=== PATIENT | male | born 1970 | race Caucasian/White ===

== ENCOUNTER 2021-08-01 15:59 | Outpatient (REF) | payer BC, SELFPAY ==
--- NOTE | ~2021-08-01 | XR_ITS ---
EXAMINATION: XR CHEST CLINICAL INFORMATION: Positive TB test COMPARISON: None TECHNIQUE: 2 views of the chest were obtained. FINDINGS: The cardiac and mediastinal contours are normal. The lungs are clear. There is no pleural effusion or pneumothorax. There is curvature of the proximal thoracic spine to the right and degenerative changes of the spine. There is an old left clavicle fracture. XR/XR chest 2V IMPRESSION: No evidence for acute disease in the chest.
== END 2021-08-01 16:00 | disposition home or self-care (01) ==
LOC: HO.XRAY 15:59
PROVIDERS: PCP Internal Medicine; Visit Provider Emergency Medicine
DX: R76.12 Nonspecific reaction to cell mediated immunity measurement of gamma interferon antigen response without active tuberculosis (principal)
CPT/HCPCS: 71046

== ENCOUNTER 2021-10-24 13:14 | Emergency (ER) | payer MEDICAID, SELFPAY ==
[2021-10-24] VITALS (8 sets, daily range): BP systolic 109–138; BP diastolic 56–82; PULSE 81–100; RESP 16–18; TEMP 36.8; O2SAT 95–98; BMI 30.4
[2021-10-24 14:18] LABS: MANUAL DIFF FLAG NO
[2021-10-24 14:22] LABS: Basophils Absolute Auto 0.1 X10*3/uL (0.0-0.2); Basophils Percent Auto 0.7 % (0-2); Eosinophils Absolute Auto 0.2 X10*3/uL (0.0-0.4); Eosinophils Percent Auto 1.9 % (0-4); Imm Gran Abs Auto 0.04 X10*3/uL (0.00-0.03); Imm Gran Pct Auto 0.5 % (0.0-0.4); Lymphocytes Absolute Auto 1.8 X10*3/uL (1.2-4.9); Lymphocytes Percent Auto 20.9 % (20-40); Mean Corpuscular HGB Conc 28.3 g/dl (31.0-36.0); Mean Corpuscular Hemoglobin 25.5 pg (27.0-33.0); Mean Corpuscular Volume 90.2 fL (80.0-98.0); Mean Platelet Volume 9.7 fL (9.4-12.4); Monocytes Absolute Auto 0.7 X10*3/uL (0.1-1.2); Monocytes Percent Auto 7.6 % (2-11); Neutrophils Percent Auto 68.4 % (45-73); Platelet Count 236 X10*3/uL (160-400); Red Blood Count 2.55 X10*6/uL (4.60-5.80); Red Cell Distribution Width 20.8 % (11.0-16.0); White Blood Count 8.8 X10*3/uL (4.8-10.8)
[2021-10-24 14:23] LABS: Hemoglobin 6.5 g/dl (14.0-18.0)
[2021-10-24 14:39] LABS: Alanine Aminotransferase 28 U/L (0-40); Albumin Level 3.3 g/dL (3.5-5.0); Alkaline Phosphatase 102 U/L (39-117); Anion Gap 12 (12-20); Aspartate Amino Transferase 52 U/L (5-37); Bilirubin Total 0.6 mg/dL (0.0-1.0); Blood Urea Nitrogen 11 mg/dL (9-16); Calcium 8.7 mg/dL (8.4-10.2); Carbon Dioxide 24 mmol/L (22-29); Chloride 111 mmol/L (96-108); Creatinine Clr Calc Pharmacy 141.5; Estimated Glomerular Filt Rate > 60; Glucose Random 124 mg/dL (60-115); Lipase 48 U/L (8-78); Potassium 4.2 mmol/L (3.3-5.1); Sodium 143 mmol/L (135-145); Total Protein 6.5 g/dL (6.5-8.0)
--- NOTE | 2021-10-24 20:33 | ED_ITS ---
HPI - Abdominal Pain General Chief Complaint: Abdominal Pain Stated Complaint: liver issues Time Seen by Provider: 10/24/21 20:33 Source: patient Mode of arrival: ambulatory Limitations: no limitations History of Present Illness HPI narrative: abdominal increasing girth over weeks. 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 Patient is unsure which medicines he is on. MD elicited complaint: abdominal pain Pertinent past history: other (cirrhosis) Onset (ago): week(s) Pain Consistency: constant Location: diffuse Severity: moderate Quality: aching Radiation: none Associated symptoms: denies other symptoms Related Data Previous Rx's Medication Instructions Recorded furosemide 20 mg tablet (Lasix) 20 mg PO DAILY #20 tab 11/01/21 Allergies Allergy/AdvReac Type Severity Reaction Status Date / Time No Known Allergies Allergy Verified 10/24/21 13:59 Review of Systems Constitutional: Reports no additional constitutional complaints Eyes: Reports no additional eye complaints Denies dizziness Cardiovascular: Reports no additional cardiovascular complaints Respiratory: Reports as per HPI Gastrointestinal: Reports no additional gastrointestinal complaints Musculoskeletal: Reports no additional musculoskeletal complaints Skin/Breast: Denies rash Reports system reviewed and no additional complaints, except as documented, Denies dizziness and Denies Sensory deficit (Neuro) Psychiatric: Denies anxiety Physical Exam Vital Signs: Vital Signs: Last Vital Signs Temp 98.3 F 10/25/21 02:13 Pulse 81 10/25/21 02:13 Resp 16 10/25/21 02:13 BP 119/74 10/25/21 02:13 Pulse Ox 97 10/25/21 02:06 BMI result Body Mass Index 30.4 Const: Other: male looking older than stated age Nutritional Appearance: average body habitus Orientation/consciousness: oriented to person and patient oriented x3 Limitations: no limitations HENMT: Head: Yes normal to inspection Ears: external ears normal General nose exam: Normal external nose present Mouth: Normal oral and palatal mucosa present and oropharynx normal Throat: Yes posterior oropharynx normal Eyes: General: appearance normal, both eyes and all related structures Neck: Other: supple Neck: Yes normal visual inspection Chest: Chest palpation & inspection: normal inspection of the chest Resp: Auscultation: clear to auscultation bilaterally Cardio: Jugular venous distension: no JVD Rate: regular rate Rhythm: regular rhythm Heart sounds: S1 normal heart sound present and S2 normal heart sound present GI: Other: Distended abdomen with ascities Palpation (GI): Soft to palpation, nontender and No hepatosplenomegaly present Auscultation: normal bowel sounds : Other: rectal heme negative Skin: General skin exam: no rashes or lesions noted Neuro: General: oriented to person and patient oriented x3 Cranial nerves: Yes CN's II-XII intact bilaterally Motor exam (neuro): 5/5 motor strength present throughout Sensory Exam: No Sensory deficit (Neuro) Extrem: General: Yes normal to inspection Psych: Appearance: grossly normal Procedures Procedure Narrative Procedure Narrative: patient consented for peritonalcentesis. prepped and draped in sterile fashion, 3L removed without incident MDM - Abdominal Pain Lab Data Result diagrams: 10/24/21 14:15 10/24/21 14:15 Labs: Lab Results 10/24/21 10/24/21 10/24/21 Range/Units 14:15 14:15 21:41 WBC 8.8 (4.8-10.8) X10*3/uL RBC 2.55 L (4.60-5.80) X10*6/uL Hgb 6.5 L* (14.0-18.0) g/dl Hct 23.0 L (42.0-52.0) % MCV 90.2 (80.0-98.0) fL MCH 25.5 L (27.0-33.0) pg MCHC 28.3 L (31.0-36.0) g/dl RDW 20.8 H (11.0-16.0) % Plt Count 236 (160-400) X10*3/uL MPV 9.7 (9.4-12.4) fL Immature Gran % (Auto) 0.5 H (0.0-0.4) % Neut % (Auto) 68.4 (45-73) % Lymph % (Auto) 20.9 (20-40) % [place] % (Auto) 7.6 (2-11) % Eos % (Auto) 1.9 (0-4) % Baso % (Auto) 0.7 (0-2) % Lymph # (Auto) 1.8 (1.2-4.9) X10*3/uL [place] # (Auto) 0.7 (0.1-1.2) X10*3/uL Eos # (Auto) 0.2 (0.0-0.4) X10*3/uL Baso # (Auto) 0.1 (0.0-0.2) X10*3/uL Abs Immat Gran (auto) 0.04 H (0.00-0.03) X10*3/uL Absolute Neuts (auto) 6.0 (2.0-8.3) x10*3/uL Absolute Nucleated RBC 0.000 (0.0-0.012) X10*3/uL Nucleated RBC % (auto) 0.0 (0.0-0.2) /100WBC Smear Path Review SEE NOTE Sodium 143 (135-145) mmol/L Potassium 4.2 (3.3-5.1) mmol/L Chloride 111 H (96-108) mmol/L Carbon Dioxide 24 (22-29) mmol/L Anion Gap 12 (12-20) BUN 11 (9-16) mg/dL Creatinine 0.66 (0.5-1.4) mg/dL Estim Creat Clear Calc 141.5 Estimated GFR > 60 Random Glucose 124 H (60-115) mg/dL Calcium 8.7 (8.4-10.2) mg/dL Total Bilirubin 0.6 (0.0-1.0) mg/dL AST 52 H (5-37) U/L ALT 28 (0-40) U/L Alkaline Phosphatase 102 (39-117) U/L Total Protein 6.5 (6.5-8.0) g/dL Albumin 3.3 L (3.5-5.0) g/dL Lipase 48 (8-78) U/L Blood Type O Positive Antibody Screen NEGATIVE Crossmatch See Detail Discharge Plan Discharge Clinical Impression: Abdominal ascites, Anemia Patient Disposition: Home, Self-Care Instructions: Ascites (ED), Anemia (ED), Paracentesis (DC) Additional Instructions: follow-up with your primary care provider as you would likely benefit from scheduled paracentesis. Prescriptions: No Action furosemide [Lasix] 20 mg tablet 20 mg PO DAILY Qty: 20 RF: 0 Referrals: Angelika Collins NP [Primary Care Provider] - 2 days Interventions: ED Discharge Assessment Last Done: 10/25/21 02:49 Discharge Date/Time: 10/25/21 02:51 [facility] Past Medical History Medical History Ascites Cirrhosis EtOH dependence Social History Social History (Updated 11/01/21 @ 15:24 by Lesa Truong DO) Alcohol intake: former Patient Tobacco Use Status: Tobacco use Unknown Advance Directives: No Advance Directives Information Provided: No
[2021-10-24] MEDS: Albumin Human 25 % 100 ML IV ×2 (21:32→23:09)
--- NOTE | 2021-10-24 22:48 | PC.NURSE ---
3100ML OF CLEAR YELLOW FLUID FROM ABD AREA DRAINED AT THIS TIME. PT AWAITING FOR 2UNITS OF PRBC.
[2021-10-24] MEDS: Lidocaine HCl 1%/Epi 1:100,000 20 ML VIAL 10 ML SUBCUT (23:10)
--- NOTE | 2021-10-24 23:35 | PC.NURSE ---
1ST UNIT UP AND RUNNING W/O DIFFICULTY, SITE INTACT. WILL CONTINUE TO MONITOR PT
[2021-10-25] VITALS: BP 137/72; PULSE 83; RESP 16; TEMP 36.8
[2021-10-25 00:56] VITALS: BP 127/73; PULSE 78; RESP 16; TEMP 36.8
[2021-10-25 00:57] VITALS: BP 127/71; PULSE 76; RESP 16; TEMP 36.8
--- NOTE | 2021-10-25 01:00 | PC.NURSE ---
2ND UNIT OF PRBC UP AND RUNNING W/O DIFFICULTY, SITE INTACT. VS WNL.
[2021-10-25 01:04] VITALS: BP 130/78; PULSE 80; RESP 16; TEMP 36.8
[2021-10-25 02:06] VITALS: BP 119/73; PULSE 81; RESP 16; TEMP 36.8; O2SAT 97
[2021-10-25 02:13] VITALS: BP 119/74; PULSE 81; RESP 16; TEMP 36.8
== END 2021-10-25 02:51 | disposition home or self-care (01) ==
PROVIDERS: Emergency Provider Student in an Organized Health Care Education/Training Program; PCP Nurse Practitioner Adult Health
DX: R18.8 Other ascites (principal); D64.9 Anemia, unspecified; K74.60 Unspecified cirrhosis of liver; F10.20 Alcohol dependence, uncomplicated
CPT/HCPCS: 36415; 36430; 49082; 80053; 83690; 85025; 86850; 86900; 86901; 86923; 96365; 96366; 99284; 99285; P9016; P9047

== ENCOUNTER 2021-11-01 09:37 | Emergency (ER) | payer MEDICAID, SELFPAY ==
--- NOTE | ~2021-11-01 | US_ITS ---
EXAMINATION: ULTRASOUND GUIDED PARACENTESIS, PORTABLE. CLINICAL INFORMATION: Large ascites, cirrhosis. COMPARISON: None TECHNIQUE: Following explaining ultrasound-guided paracentesis procedure, benefits and risk, a written consent was obtained. Patient was placed supine on stretcher and preliminary ultrasound imaging was obtained through the abdomen. An optimal site was selected along the right midabdomen and marked. The marked site was cleaned and draped in usual sterile manner. 1% lidocaine was injected at the marked site. Through a small skin incision a [employer] catheter was advanced into the peritoneal fluid. After observing fluid return, stylet was withdrawn and catheter connected to vacuum bottle via connecting cannula. After obtaining almost all fluid and observing no fluid return, catheter was withdrawn and complete hemostasis achieved at puncture site. Also patient is complaining of minimal pain at the puncture site. Sterile dressing applied postprocedure. Patient tolerated procedure very well.. FINDINGS: On preliminary ultrasound imaging there is a large amount of free fluid in the peritoneum. Ultrasound-guided approximately 9.4 L of slightly cloudy yellowish fluid drained from the right lower quadrant. No fluid was sent to the lab. The exam was performed portably in the ER. US/US paracentesis abd w/image IMPRESSION: Successful ultrasound-guided therapeutic portable paracentesis performed in the ED department.
[2021-11-01 10:06] VITALS: BP 128/77; PULSE 97; RESP 18; TEMP 36.7; O2SAT 98; BMI 25.5
[2021-11-01 11:22] LABS: MANUAL DIFF FLAG NO
[2021-11-01 11:23] LABS: Basophils Percent Auto 0.6 % (0-2); Eosinophils Absolute Auto 0.2 X10*3/uL (0.0-0.4); Eosinophils Percent Auto 2.3 % (0-4); Hematocrit 28.3 % (42.0-52.0); Hemoglobin 8.3 g/dl (14.0-18.0); Imm Gran Abs Auto 0.02 X10*3/uL (0.00-0.03); Imm Gran Pct Auto 0.3 % (0.0-0.4); Lymphocytes Absolute Auto 1.7 X10*3/uL (1.2-4.9); Mean Corpuscular HGB Conc 29.3 g/dl (31.0-36.0); Mean Corpuscular Hemoglobin 25.6 pg (27.0-33.0); Mean Corpuscular Volume 87.3 fL (80.0-98.0); Mean Platelet Volume 9.5 fL (9.4-12.4); Monocytes Absolute Auto 0.6 X10*3/uL (0.1-1.2); Neutrophils Percent Auto 61.8 % (45-73); Platelet Count 177 X10*3/uL (160-400); Red Blood Count 3.24 X10*6/uL (4.60-5.80); Red Cell Distribution Width 20.9 % (11.0-16.0); White Blood Count 6.5 X10*3/uL (4.8-10.8)
[2021-11-01 11:38] LABS: Alanine Aminotransferase 26 U/L (0-40); Albumin Level 3.3 g/dL (3.5-5.0); Alkaline Phosphatase 101 U/L (39-117); Anion Gap 13 (12-20); Aspartate Amino Transferase 49 U/L (5-37); Bilirubin Direct 0.6 mg/dL (0.0-0.5); Bilirubin Total 0.9 mg/dL (0.0-1.0); Blood Urea Nitrogen 9 mg/dL (9-16); Calcium 8.7 mg/dL (8.4-10.2); Carbon Dioxide 27 mmol/L (22-29); Chloride 110 mmol/L (96-108); Creatinine Clr Calc Pharmacy 127.1; Estimated Glomerular Filt Rate > 60; Glucose Random 115 mg/dL (60-115); Lipase 40 U/L (8-78); Potassium 4.5 mmol/L (3.3-5.1); Sodium 145 mmol/L (135-145); Total Protein 6.5 g/dL (6.5-8.0)
--- NOTE | 2021-11-01 14:02 | ED_ITS ---
HPI - General Adult General Chief complaint: General Medical Stated complaint: Liver issues Time Seen by Provider: 11/01/21 13:51 Source: patient and old records reviewed Mode of arrival: ambulatory Limitations: no limitations History of Present Illness HPI narrative: seen 10/24 was anemic s/p paracentesis in ED 3L has no GI doctor has not seen them at [facility] [place] in 3 years not on diuretics - swelled up again per him, not using ETOH states he needs fluid removed no pain no fevers MD complaint: ascites Onset (ago): day(s) (7) Location: abdomen, left, right and lower extremity Severity: moderate Quality: dull Relieving factors: none Exacerbating factors: none Associated symptoms: denies other symptoms Treatments prior to arrival: none Related Data Previous Rx's Medication Instructions Recorded furosemide 20 mg tablet (Lasix) 20 mg PO DAILY #20 tab 11/01/21 Allergies Allergy/AdvReac Type Severity Reaction Status Date / Time No Known Allergies Allergy Verified 10/24/21 13:59 Review of Systems Review of Systems: Constitutional : No Weight loss, No Fever, No Chills ENT/Mouth : No sore throat, No Rhinorrhea Eyes: No Swelling, No Redness Cardiovascular : No Chest Pain, No SOB, pos Edema Respiratory : No Cough, No Sputum, No Wheezing Gastrointestinal : no Nausea, no Vomiting, no Diarrhea, no abdominal Pain, No Hematochezia, No Melena Genitourinary : No Dysuria, No Urinary Frequency, No Hematuria, No Urgency Musculoskeletal : No joint pain, No Myalgias, No Joint Swelling Skin : No Skin Lesions, No rash Neuro : No Weakness, No Numbness, No Dizziness, No Headache Psych : No Anxiety/Panic, No Depression Heme/Lymph: No Bruising, No Lymphadenopathy Endocrine : No Polyuria, No Polydipsia All other systems reviewed and are negative. [facility] Past Medical History Medical History Ascites Cirrhosis EtOH dependence Social History Social History (Updated 11/01/21 @ 15:24 by Lesa Truong DO) Alcohol intake: former Patient Tobacco Use Status: Tobacco use Unknown Advance Directives: No Advance Directives Information Provided: No Physical Exam Vital Signs: Vital Signs: Last Vital Signs Temp 98.1 F 11/01/21 14:37 Pulse 87 11/01/21 14:37 Resp 18 11/01/21 14:37 BP 116/80 11/01/21 14:37 Pulse Ox 96 11/01/21 14:37 BMI result Body Mass Index 25.5 Appearance: Alert. Oriented X3. No acute distress. Eyes: Pupils equal, round and reactive to light. ENT: Pharynx normal. Neck: Normal inspection. Neck supple. CVS: Normal heart rate and rhythm. Pulses normal. Respiratory: No respiratory distress. Breath sounds normal. Abdomen: Soft and nontender. + ascites noted moderate to large amount Skin: Skin warm and dry. Normal skin color. Normal skin turgor. Extremities: 1+ pitting lower extremity edema. No calf ttp Neuro: Oriented X 3. No motor deficit. No sensory deficit. Course Course Course Narrative: 9.5L removed 2 albumin ordered. signed out to Sharlene JORDAN pending repeat BP obs til 6pm Medical Decision Making MDM Narrative Medical decision making narrative: 51 yo male reports hx of ETOH cirrhosis does not have GI doctor here again for paracentesis - no fevers, no abdominal pain no exam findings or clinical history to suggest SBP. paracentesis ordered - at this time may benefit from PO diuretics until he can see GI doctor. Lab Data Result diagrams: 11/01/21 11:17 11/01/21 11:17 Labs: Lab Results 11/01/21 11/01/21 11/01/21 Range/Units 11:17 11:17 14:31 WBC 6.5 (4.8-10.8) X10*3/uL RBC 3.24 L D (4.60-5.80) X10*6/uL Hgb 8.3 L D (14.0-18.0) g/dl Hct 28.3 L D (42.0-52.0) % MCV 87.3 (80.0-98.0) fL MCH 25.6 L (27.0-33.0) pg MCHC 29.3 L (31.0-36.0) g/dl RDW 20.9 H (11.0-16.0) % Plt Count 177 (160-400) X10*3/uL MPV 9.5 (9.4-12.4) fL Immature Gran % (Auto) 0.3 (0.0-0.4) % Neut % (Auto) 61.8 (45-73) % Lymph % (Auto) 26.0 (20-40) % [place] % (Auto) 9.0 (2-11) % Eos % (Auto) 2.3 (0-4) % Baso % (Auto) 0.6 (0-2) % Lymph # (Auto) 1.7 (1.2-4.9) X10*3/uL [place] # (Auto) 0.6 (0.1-1.2) X10*3/uL Eos # (Auto) 0.2 (0.0-0.4) X10*3/uL Baso # (Auto) 0.0 (0.0-0.2) X10*3/uL Abs Immat Gran (auto) 0.02 (0.00-0.03) X10*3/uL Absolute Neuts (auto) 4.0 (2.0-8.3) x10*3/uL Absolute Nucleated RBC 0.000 (0.0-0.012) X10*3/uL Nucleated RBC % (auto) 0.0 (0.0-0.2) /100WBC PT 18.1 H (9.9-13.0) SEC INR 1.6 H (0.9-1.1) APTT 32.4 (24.1-38.0) SEC Sodium 145 (135-145) mmol/L Potassium 4.5 (3.3-5.1) mmol/L Chloride 110 H (96-108) mmol/L Carbon Dioxide 27 (22-29) mmol/L Anion Gap 13 (12-20) BUN 9 (9-16) mg/dL Creatinine 0.65 (0.5-1.4) mg/dL Estim Creat Clear Calc 127.1 Estimated GFR > 60 Random Glucose 115 (60-115) mg/dL Calcium 8.7 (8.4-10.2) mg/dL Total Bilirubin 0.9 (0.0-1.0) mg/dL Direct Bilirubin 0.6 H (0.0-0.5) mg/dL AST 49 H (5-37) U/L ALT 26 (0-40) U/L Alkaline Phosphatase 101 (39-117) U/L Total Protein 6.5 (6.5-8.0) g/dL Albumin 3.3 L (3.5-5.0) g/dL Lipase 40 (8-78) U/L Discharge Plan Discharge Clinical Impression: Abdominal ascites Qualifiers: Ascites type: due to alcoholic cirrhosis Qualified Code(s): K70.31 - Alcoholic cirrhosis of liver with ascites Patient Disposition: Home, Self-Care Instructions: Ascites (ED), Paracentesis (DC) Additional Instructions: return to ED for any worsening symptoms or concerns please call your liver doctor at [facility] as soon as possible Prescriptions: New furosemide [Lasix] 20 mg tablet 20 mg PO DAILY Qty: 20 RF: 0
[2021-11-01 14:37] VITALS: BP 116/80; PULSE 87; RESP 18; TEMP 36.7; O2SAT 96
[2021-11-01 14:46] LABS: INTERNATIONAL NORM RATIO 1.6 (0.9-1.1); Prothrombin Time 18.1 SEC (9.9-13.0)
[2021-11-01 14:48] LABS: Partial Thromboplastin Time 32.4 SEC (24.1-38.0)
[2021-11-01] MEDS: Albumin Human 25 % 100 ML IV (15:59)
[2021-11-01] MEDS: Lidocaine HCl 1 % MPF 5 ML VIAL 4 ML SUBCUT (16:17)
[2021-11-01 17:06] VITALS: BP 121/75; PULSE 76
== END 2021-11-01 18:08 | disposition home or self-care (01) ==
PROVIDERS: Emergency Provider Emergency Medicine
DX: K70.31 Alcoholic cirrhosis of liver with ascites (principal); F10.20 Alcohol dependence, uncomplicated
CPT/HCPCS: 36415; 49083; 80048; 80076; 83690; 85025; 85610; 85730; 96365; 96366; 99284; P9047

== ENCOUNTER 2021-12-04 09:56 | Emergency (ER) | payer MEDICAID, SELFPAY ==
[2021-12-04] VITALS (11 sets, daily range): BP systolic 111–162; BP diastolic 71–91; PULSE 72–97; RESP 14–17; TEMP 36.9; O2SAT 97–99; BMI 27.4
[2021-12-04 10:16] LABS: MANUAL DIFF FLAG NO
[2021-12-04 10:18] LABS: Basophils Percent Auto 0.6 % (0-2); Eosinophils Absolute Auto 0.1 X10*3/uL (0.0-0.4); Eosinophils Percent Auto 1.6 % (0-4); Hematocrit 29.3 % (42.0-52.0); Hemoglobin 8.7 g/dl (14.0-18.0); Imm Gran Abs Auto 0.01 X10*3/uL (0.00-0.03); Imm Gran Pct Auto 0.2 % (0.0-0.4); Lymphocytes Percent Auto 19.6 % (20-40); Mean Corpuscular HGB Conc 29.7 g/dl (31.0-36.0); Mean Corpuscular Hemoglobin 24.4 pg (27.0-33.0); Mean Corpuscular Volume 82.3 fL (80.0-98.0); Mean Platelet Volume 9.2 fL (9.4-12.4); Monocytes Absolute Auto 0.5 X10*3/uL (0.1-1.2); Monocytes Percent Auto 9.9 % (2-11); Neutrophils Absolute Auto 3.4 x10*3/uL (2.0-8.3); Neutrophils Percent Auto 68.1 % (45-73); Platelet Count 144 X10*3/uL (160-400); Red Blood Count 3.56 X10*6/uL (4.60-5.80); Red Cell Distribution Width 22.9 % (11.0-16.0)
[2021-12-04 10:37] LABS: Alanine Aminotransferase 18 U/L (0-40); Albumin Level 3.5 g/dL (3.5-5.0); Alkaline Phosphatase 95 U/L (39-117); Anion Gap 13 (12-20); Aspartate Amino Transferase 44 U/L (5-37); Bilirubin Direct 0.6 mg/dL (0.0-0.5); Bilirubin Total 0.9 mg/dL (0.0-1.0); Blood Urea Nitrogen 9 mg/dL (9-16); Calcium 8.9 mg/dL (8.4-10.2); Carbon Dioxide 24 mmol/L (22-29); Chloride 107 mmol/L (96-108); Creatinine Clr Calc Pharmacy 131.4; Estimated Glomerular Filt Rate > 60; Glucose Random 139 mg/dL (60-115); Potassium 3.6 mmol/L (3.3-5.1); Sodium 140 mmol/L (135-145)
[2021-12-04 10:51] LABS: COVID-19 Test Negative (Negative)
--- NOTE | 2021-12-04 16:01 | ED_ITS ---
HPI - Abdominal Pain General Chief Complaint: Abdominal Pain Stated Complaint: Abd pain Time Seen by Provider: 12/04/21 15:18 Source: patient Mode of arrival: ambulatory History of Present Illness HPI narrative: 51-year-old male with a past medical history of ETOH dependence, anemia, ascites, cirrhosis s/p multiple paracentesis', presenting to the ED complaining abdominal distension/swelling x1 month requesting paracentesis. Denies EtOH use. Reports has been unable to follow-up with GI secondary to insurance issues. Denies SOB, fever, chills, nausea, vomiting, diarrhea/constipation, abdominal pain, dysuria/hematuria Onset (ago): month(s) Related Data Previous Rx's Medication Instructions Recorded furosemide 20 mg tablet (Lasix) 20 mg PO DAILY #20 tab 11/01/21 furosemide 20 mg tablet (Lasix) 20 mg PO DAILY #20 tab 12/04/21 Allergies Allergy/AdvReac Type Severity Reaction Status Date / Time No Known Allergies Allergy Verified 10/24/21 13:59 Review of Systems Review of Systems Constitutional: No Fever, No Chills, No Fatigue, No Malaise ENT/Mouth: No Ear Pain, No Nasal Congestion, No sore throat, No Rhinorrhea, No Swallowing Difficulty Eyes: No Eye Pain, No Swelling, No Redness, No Discharge Cardiovascular: No Chest Pain, No SOB, No Edema Respiratory: No Cough, No Sputum Gastrointestinal: No Nausea, No Vomiting, No Diarrhea, No Constipation, No Abdominal pain, + abdominal distension Genitourinary: No Dysuria, No Hematuria, No Urgency, No Flank Pain, No Urinary Flow Changes Musculoskeletal: No joint pain, No Myalgias, No Joint Swelling Skin: No Skin Lesions, No rash Neuro: No Weakness, No Dizziness, No Headache Yes all other systems are reviewed and are negative Physical Exam Vital Signs: Vital Signs: Last Vital Signs Temp 98.5 F 12/04/21 15:51 Pulse 80 12/04/21 17:49 Resp 15 12/04/21 17:49 BP 132/89 12/04/21 17:49 Pulse Ox 98 12/04/21 17:49 BMI result Body Mass Index 27.4 Const: General: cooperative, healthy appearing and no acute distress Orientation/consciousness: patient oriented x3 Limitations: no limitations HENMT: Head: Yes normal to inspection Ears: hearing grossly normal bilaterally General nose exam: Normal external nose present Face and sinus: Yes normal facial exam Eyes: General: appearance normal, both eyes and all related structures EOM: EOMs intact bilaterally Neck: Neck: Yes normal visual inspection and Yes no meningeal signs Resp: Effort & Inspection: normal respiratory effort and no respiratory distress Auscultation: clear to auscultation bilaterally, no rales, no rhonchi and no wheezes Cardio: Rate: regular rate Heart sounds: S1 normal heart sound present and S2 normal heart sound present GI: Inspection: Yes normal to inspection and Yes distended (+ascites) Palpation (GI): Soft to palpation, nontender, no guarding and not rigid Skin: Rashes: no rashes Wounds: no wounds Neuro: General: patient oriented x3, tone normal, moves all extremities and no meningeal signs Gait exam (Neuro): Normal gait present Extrem: General: Yes normal to inspection, Yes no pedal edema and Yes no calf tenderness Procedures Paracentesis Time Out Performed: Yes Indication: Ascites Procedure: therapeutic paracentesis Location: LLQ Local Anesthetic: lidocaine 1% and lidocaine 2% Amount of anesthesia used (mL): 5 Bedside Ultrasound Used: yes, Ascites confirmed and location marked Preparation: sterile prep and drape Fluid: clear Post Procedure Exam: awake, alert and normal BP Patient Tolerated Procedure: well and no complications Complications: none Course Course Course Narrative: Paracentesis consent signed & in patient's chart -no leukocytosis. H&H stable. Platelets 144. Coags stable. Labs otherwise at patient's baseline > patient repleted with Albumin x1 -1800--ED care transferred to Dr. Diaz pending completed drainage and serial BP's/observation MDM - Abdominal Pain MDM Narrative Medical decision making narrative: 51-year-old male with a past medical history of ETOH dependence, anemia, ascites, cirrhosis s/p multiple paracentesis', presenting to the ED complaining abdominal distension/swelling x1 month requesting paracentesis. On exam vital signs stable, NAD/nontoxic appearing, abdomen distended, soft, nontender, no rebound or guarding. No pedal edema. Low concern for SBP Plan: Labs, paracentesis Medical Records Attestation: I reviewed the patient's medical records. Lab Data Attestation: I reviewed the patient's lab results. Result diagrams: 12/04/21 10:13 12/04/21 10:12 Labs: Lab Results 12/04/21 12/04/21 12/04/21 Range/Units 10:11 10:12 10:13 WBC 5.0 (4.8-10.8) X10*3/uL RBC 3.56 L (4.60-5.80) X10*6/uL Hgb 8.7 L (14.0-18.0) g/dl Hct 29.3 L (42.0-52.0) % MCV 82.3 (80.0-98.0) fL MCH 24.4 L (27.0-33.0) pg MCHC 29.7 L (31.0-36.0) g/dl RDW 22.9 H (11.0-16.0) % Plt Count 144 L (160-400) X10*3/uL MPV 9.2 L (9.4-12.4) fL Immature Gran % (Auto) 0.2 (0.0-0.4) % Neut % (Auto) 68.1 (45-73) % Lymph % (Auto) 19.6 L (20-40) % [place] % (Auto) 9.9 (2-11) % Eos % (Auto) 1.6 (0-4) % Baso % (Auto) 0.6 (0-2) % Lymph # (Auto) 1.0 L (1.2-4.9) X10*3/uL [place] # (Auto) 0.5 (0.1-1.2) X10*3/uL Eos # (Auto) 0.1 (0.0-0.4) X10*3/uL Baso # (Auto) 0.0 (0.0-0.2) X10*3/uL Abs Immat Gran (auto) 0.01 (0.00-0.03) X10*3/uL Absolute Neuts (auto) 3.4 (2.0-8.3) x10*3/uL Absolute Nucleated RBC 0.000 (0.0-0.012) X10*3/uL Nucleated RBC % (auto) 0.0 (0.0-0.2) /100WBC PT (9.9-13.0) SEC INR (0.9-1.1) APTT (24.1-38.0) SEC Sodium 140 (135-145) mmol/L Potassium 3.6 (3.3-5.1) mmol/L Chloride 107 (96-108) mmol/L Carbon Dioxide 24 (22-29) mmol/L Anion Gap 13 (12-20) BUN 9 (9-16) mg/dL Creatinine 0.65 (0.5-1.4) mg/dL Estim Creat Clear Calc 131.4 Estimated GFR > 60 Random Glucose 139 H (60-115) mg/dL Calcium 8.9 (8.4-10.2) mg/dL Total Bilirubin 0.9 (0.0-1.0) mg/dL Direct Bilirubin 0.6 H (0.0-0.5) mg/dL AST 44 H (5-37) U/L ALT 18 (0-40) U/L Alkaline Phosphatase 95 (39-117) U/L Total Protein 7.0 (6.5-8.0) g/dL Albumin 3.5 (3.5-5.0) g/dL COVID-19 ([place]) Negative (Negative) COVID-19 Clin Com See Note 12/04/21 Range/Units 15:59 WBC (4.8-10.8) X10*3/uL RBC (4.60-5.80) X10*6/uL Hgb (14.0-18.0) g/dl Hct (42.0-52.0) % MCV (80.0-98.0) fL MCH (27.0-33.0) pg MCHC (31.0-36.0) g/dl RDW (11.0-16.0) % Plt Count (160-400) X10*3/uL MPV (9.4-12.4) fL Immature Gran % (Auto) (0.0-0.4) % Neut % (Auto) (45-73) % Lymph % (Auto) (20-40) % [place] % (Auto) (2-11) % Eos % (Auto) (0-4) % Baso % (Auto) (0-2) % Lymph # (Auto) (1.2-4.9) X10*3/uL [place] # (Auto) (0.1-1.2) X10*3/uL Eos # (Auto) (0.0-0.4) X10*3/uL Baso # (Auto) (0.0-0.2) X10*3/uL Abs Immat Gran (auto) (0.00-0.03) X10*3/uL Absolute Neuts (auto) (2.0-8.3) x10*3/uL Absolute Nucleated RBC (0.0-0.012) X10*3/uL Nucleated RBC % (auto) (0.0-0.2) /100WBC PT 18.2 H (9.9-13.0) SEC INR 1.6 H (0.9-1.1) APTT 32.5 (24.1-38.0) SEC Sodium (135-145) mmol/L Potassium (3.3-5.1) mmol/L Chloride (96-108) mmol/L Carbon Dioxide (22-29) mmol/L Anion Gap (12-20) BUN (9-16) mg/dL Creatinine (0.5-1.4) mg/dL Estim Creat Clear Calc Estimated GFR Random Glucose (60-115) mg/dL Calcium (8.4-10.2) mg/dL Total Bilirubin (0.0-1.0) mg/dL Direct Bilirubin (0.0-0.5) mg/dL AST (5-37) U/L ALT (0-40) U/L Alkaline Phosphatase (39-117) U/L Total Protein (6.5-8.0) g/dL Albumin (3.5-5.0) g/dL COVID-19 ([place]) (Negative) COVID-19 Clin Com Discharge Plan Discharge Clinical Impression: Abdominal ascites Qualifiers: Ascites type: due to alcoholic cirrhosis Qualified Code(s): K70.31 - Alcoholic cirrhosis of liver with ascites Instructions: Ascites (ED), Paracentesis (DC) Additional Instructions: You need to follow-up with Gastroenterology and your primary care doctor. You would benefit from scheduled paracentesis Return to the emergency department if he develops fever, abdominal pain, nausea/vomiting, inability to eat or drink, or any bleeding Prescriptions: New furosemide [Lasix] 20 mg tablet 20 mg PO DAILY Qty: 20 RF: 0 No Action furosemide [Lasix] 20 mg tablet 20 mg PO DAILY Qty: 20 RF: 0 Referrals: Hanane Tinajero MD [Physician] - 2 days [facility] Past Medical History Attestation statement: The following information was validated with the patient. Medical History Ascites Cirrhosis EtOH dependence Social History Social History Alcohol intake: never Patient Tobacco Use Status: Current everyday Tobacco user Use of substances other than those prescribed or required for medical reasons: No Advance Directives: No Advance Directives Information Provided: No
[2021-12-04 16:29] LABS: INTERNATIONAL NORM RATIO 1.6 (0.9-1.1); Prothrombin Time 18.2 SEC (9.9-13.0)
[2021-12-04 16:31] LABS: Partial Thromboplastin Time 32.5 SEC (24.1-38.0)
[2021-12-04] MEDS: Albumin Human 25 % 100 ML IV (16:56)
[2021-12-04] MEDS: Lidocaine HCl 1 % MPF 5 ML VIAL SUBCUT (17:09)
== END 2021-12-04 20:43 | disposition home or self-care (01) ==
PROVIDERS: Physician Assistant; Emergency Provider Internal Medicine; PCP Nurse Practitioner Adult Health
DX: K70.31 Alcoholic cirrhosis of liver with ascites (principal); F17.200 Nicotine dependence, unspecified, uncomplicated; Z71.6 Tobacco abuse counseling; Z20.822 Contact with and (suspected) exposure to COVID-19; Z79.899 Other long term (current) drug therapy
CPT/HCPCS: 36415; 49083; 80048; 80076; 85025; 85610; 85730; 87635; 99284; P9047

== ENCOUNTER 2021-12-25 10:17 | Emergency (ER) | payer MEDICAID, SELFPAY ==
[2021-12-25] VITALS (10 sets, daily range): BP systolic 90–127; BP diastolic 47–80; PULSE 81–92; RESP 18–20; TEMP 37.2; O2SAT 95; BMI 31.6
[2021-12-25 11:21] LABS: MANUAL DIFF FLAG NO
[2021-12-25 11:32] LABS: Basophils Percent Auto 0.5 % (0-2); Eosinophils Absolute Auto 0.1 X10*3/uL (0.0-0.4); Eosinophils Percent Auto 2.1 % (0-4); Hematocrit 25.1 % (42.0-52.0); Hemoglobin 7.4 g/dl (14.0-18.0); Imm Gran Abs Auto 0.02 X10*3/uL (0.00-0.03); Imm Gran Pct Auto 0.3 % (0.0-0.4); Lymphocytes Percent Auto 17.8 % (20-40); Mean Corpuscular HGB Conc 29.5 g/dl (31.0-36.0); Mean Corpuscular Hemoglobin 24.7 pg (27.0-33.0); Mean Corpuscular Volume 83.7 fL (80.0-98.0); Mean Platelet Volume 10.2 fL (9.4-12.4); Monocytes Absolute Auto 0.6 X10*3/uL (0.1-1.2); Monocytes Percent Auto 10.5 % (2-11); Neutrophils Percent Auto 68.8 % (45-73); Platelet Count 161 X10*3/uL (160-400); Red Cell Distribution Width 23.5 % (11.0-16.0); White Blood Count 5.8 X10*3/uL (4.8-10.8)
[2021-12-25 11:36] LABS: INTERNATIONAL NORM RATIO 1.5 (0.9-1.1); Prothrombin Time 17.2 SEC (9.9-13.0)
[2021-12-25 11:38] LABS: Alanine Aminotransferase 21 U/L (0-40); Albumin Level 3.5 g/dL (3.5-5.0); Alkaline Phosphatase 111 U/L (39-117); Anion Gap 12 (12-20); Aspartate Amino Transferase 48 U/L (5-37); Bilirubin Direct 0.4 mg/dL (0.0-0.5); Bilirubin Total 0.7 mg/dL (0.0-1.0); Blood Urea Nitrogen 11 mg/dL (9-16); Calcium 8.5 mg/dL (8.4-10.2); Carbon Dioxide 29 mmol/L (22-29); Chloride 103 mmol/L (96-108); Estimated Glomerular Filt Rate > 60; Glucose Random 124 mg/dL (60-115); Partial Thromboplastin Time 29.8 SEC (24.1-38.0); Potassium 4.2 mmol/L (3.3-5.1); Sodium 140 mmol/L (135-145); Total Protein 6.8 g/dL (6.5-8.0)
--- NOTE | 2021-12-25 13:16 | ED.GENADULT ---
HPI - General Adult General Chief complaint: Dyspnea Stated complaint: needs stomach drained Time Seen by Provider: 12/25/21 13:03 Source: patient Mode of arrival: ambulatory Limitations: no limitations History of Present Illness HPI narrative: patient comes to the emergency room complaining of abdominal distension. Patient is known to have cirrhosis and needs therapeutic paracentesis. a stent he had a paracentesis was on December 04. Patient states that the weight of the fluid is making him feel heavy, when he lays down he feels short of breath due to the weight. Otherwise patient is asymptomatic. Patient states that he has an appointment with Gastroenterology in 1 week Related Data Previous Rx's Medication Instructions Recorded furosemide 20 mg tablet (Lasix) 20 mg PO DAILY #20 tab 11/01/21 furosemide 20 mg tablet (Lasix) 20 mg PO DAILY #20 tab 12/04/21 Allergies Allergy/AdvReac Type Severity Reaction Status Date / Time No Known Allergies Allergy Verified 10/24/21 13:59 Review of Systems Review of Systems: Constitutional : No Weight loss, No Fever, No Chills, No Night Sweats, No Fatigue, No Malaise ENT/Mouth : No Hearing loss, No Ear Pain, No Nasal Congestion, No Sinus Pain, No Hoarseness, No sore throat, No Rhinorrhea, No Swallowing Difficulty Eyes: No Eye Pain, No Swelling, No Redness, No Foreign Body, No Discharge, No Vision Changes Cardiovascular : No Chest Pain, No SOB, No Dyspnea on Exertion, No Orthopnea, No Edema, No Palpitations Respiratory : No Cough, No Sputum, No Wheezing, No Smoke Exposure, No Dyspnea Gastrointestinal : No Nausea, No Vomiting, No Diarrhea, No Constipation, complaining of abdominal fullness/ fluid Genitourinary : no irregular bleeding, No Dysuria, No Urinary Frequency, No Hematuria, No Urinary Incontinence, No Urgency, No Flank Pain, No Urinary Flow Changes, No Hesitancy Musculoskeletal : No joint pain, No Myalgias, No Joint Swelling Skin : No Skin Lesions, No rash Neuro : No Weakness, No Numbness, No Paresthesias, No Loss of Consciousness, No Dizziness, No Headache Psych : No Anxiety/Panic, No Depression, No SI/HI/AH/VH, No Social Issues, Heme/Lymph: No Bruising, No Bleeding,No Lymphadenopathy Endocrine : No Polyuria, No Polydipsia, No Temperature Intolerance PMF Past Medical History Medical History Ascites Cirrhosis EtOH dependence Social History Social History Alcohol intake: never Patient Tobacco Use Status: Current everyday Tobacco user Smoked in Last 30 Days: Yes Use of substances other than those prescribed or required for medical reasons: No Advance Directives: No Advance Directives Information Provided: No Physical Exam ED Vital Signs: Vital Signs - 24 hr 12/25/21 10:36 12/25/21 13:37 12/25/21 13:41 Temperature 98.9 F Pulse Rate 92 88 89 Respiratory Rate 18 Blood Pressure 127/80 119/78 112/77 Pulse Oximetry 95 12/25/21 13:49 12/25/21 14:23 12/25/21 14:37 Temperature Pulse Rate 89 83 Respiratory Rate 18 Blood Pressure 117/75 90/47 L 110/71 Pulse Oximetry 12/25/21 14:46 12/25/21 14:55 12/25/21 15:30 Temperature Pulse Rate 81 83 86 Respiratory Rate 18 20 Blood Pressure 105/65 104/65 110/57 L Pulse Oximetry BMI result Body Mass Index 31.6 Const Other: Appearance: Alert. Oriented X3. No acute distress. Eyes: Pupils equal, round and reactive to light. ENT: Pharynx normal. Neck: Normal inspection. Neck supple. No lymph nodes noted. No crepitus CVS: Normal heart rate and rhythm. Pulses normal. Normal S1 and S2 Respiratory: No respiratory distress. Breath sounds normal. No Wheezing. No rales Abdomen: Soft Moderately distended, nontender, declined rectal exam Skin: Skin warm and dry. Normal skin color. Normal skin turgor. Extremities: No lower extremity edema. No lower extremity edema. No Lacerations. No Rash Neuro: Oriented X 3. No motor deficit. No sensory deficit. Moving all extermities. No slurred speech. Course Course Course Narrative: I discussed with the patient that his hemoglobin is 7.4. Patient is known to be anemic. Patient denies black stool or rectal bleeding. At this time, patient states that he has an appointment pending with gastroenterology in 1 week, at this time patient states that she does not want a rectal exam to be done, he will wait until his GI appointment. Also, patient states that he feels full of energy , denies chest pain, dizziness/ lightheadedness fatigue. Patient declines blood transfusion at this time. Patient consented to paracentesis. Paracentesis was on the left side, 43795 mL extracted, patient was given 2 doses of IV albumin. patient states that he feels well. 412, patient is finishing his 2nd dose of albumin. Patient remains asymptomatic, states he feels very well, blood pressure stable above 110/57 as mentioned above, patient will follow-up with his New asphalt blender in 1 week. Medical Decision Making Lab Data Result diagrams: 12/25/21 11:11 12/25/21 11:11 Labs: Lab Results 12/25/21 12/25/21 12/25/21 Range/Units 11:11 11:11 11:11 WBC 5.8 (4.8-10.8) X10*3/uL RBC 3.00 L (4.60-5.80) X10*6/uL Hgb 7.4 L (14.0-18.0) g/dl Hct 25.1 L (42.0-52.0) % MCV 83.7 (80.0-98.0) fL MCH 24.7 L (27.0-33.0) pg MCHC 29.5 L (31.0-36.0) g/dl RDW 23.5 H (11.0-16.0) % Plt Count 161 (160-400) X10*3/uL MPV 10.2 (9.4-12.4) fL Immature Gran % (Auto) 0.3 (0.0-0.4) % Neut % (Auto) 68.8 (45-73) % Lymph % (Auto) 17.8 L (20-40) % [place] % (Auto) 10.5 (2-11) % Eos % (Auto) 2.1 (0-4) % Baso % (Auto) 0.5 (0-2) % Lymph # (Auto) 1.0 L (1.2-4.9) X10*3/uL [place] # (Auto) 0.6 (0.1-1.2) X10*3/uL Eos # (Auto) 0.1 (0.0-0.4) X10*3/uL Baso # (Auto) 0.0 (0.0-0.2) X10*3/uL Abs Immat Gran (auto) 0.02 (0.00-0.03) X10*3/uL Absolute Neuts (auto) 4.0 (2.0-8.3) x10*3/uL Absolute Nucleated RBC 0.000 (0.0-0.012) X10*3/uL Nucleated RBC % (auto) 0.0 (0.0-0.2) /100WBC PT 17.2 H (9.9-13.0) SEC INR 1.5 H (0.9-1.1) APTT 29.8 (24.1-38.0) SEC Sodium 140 (135-145) mmol/L Potassium 4.2 (3.3-5.1) mmol/L Chloride 103 (96-108) mmol/L Carbon Dioxide 29 (22-29) mmol/L Anion Gap 12 (12-20) BUN 11 (9-16) mg/dL Creatinine 0.67 (0.5-1.4) mg/dL Estim Creat Clear Calc 142.0 Estimated GFR > 60 Random Glucose 124 H (60-115) mg/dL Calcium 8.5 (8.4-10.2) mg/dL Total Bilirubin 0.7 (0.0-1.0) mg/dL Direct Bilirubin 0.4 (0.0-0.5) mg/dL AST 48 H (5-37) U/L ALT 21 (0-40) U/L Alkaline Phosphatase 111 (39-117) U/L Total Protein 6.8 (6.5-8.0) g/dL Albumin 3.5 (3.5-5.0) g/dL Peritoneal WBC X10*3/uL Peritoneal RBC X10*6/uL Periton Neutrophils % Periton Lymphocytes % Peritoneal Monocytes % Peritoneal Other Cells % 12/25/21 Range/Units 13:57 WBC (4.8-10.8) X10*3/uL RBC (4.60-5.80) X10*6/uL Hgb (14.0-18.0) g/dl Hct (42.0-52.0) % MCV (80.0-98.0) fL MCH (27.0-33.0) pg MCHC (31.0-36.0) g/dl RDW (11.0-16.0) % Plt Count (160-400) X10*3/uL MPV (9.4-12.4) fL Immature Gran % (Auto) (0.0-0.4) % Neut % (Auto) (45-73) % Lymph % (Auto) (20-40) % [place] % (Auto) (2-11) % Eos % (Auto) (0-4) % Baso % (Auto) (0-2) % Lymph # (Auto) (1.2-4.9) X10*3/uL [place] # (Auto) (0.1-1.2) X10*3/uL Eos # (Auto) (0.0-0.4) X10*3/uL Baso # (Auto) (0.0-0.2) X10*3/uL Abs Immat Gran (auto) (0.00-0.03) X10*3/uL Absolute Neuts (auto) (2.0-8.3) x10*3/uL Absolute Nucleated RBC (0.0-0.012) X10*3/uL Nucleated RBC % (auto) (0.0-0.2) /100WBC PT (9.9-13.0) SEC INR (0.9-1.1) APTT (24.1-38.0) SEC Sodium (135-145) mmol/L Potassium (3.3-5.1) mmol/L Chloride (96-108) mmol/L Carbon Dioxide (22-29) mmol/L Anion Gap (12-20) BUN (9-16) mg/dL Creatinine (0.5-1.4) mg/dL Estim Creat Clear Calc Estimated GFR Random Glucose (60-115) mg/dL Calcium (8.4-10.2) mg/dL Total Bilirubin (0.0-1.0) mg/dL Direct Bilirubin (0.0-0.5) mg/dL AST (5-37) U/L ALT (0-40) U/L Alkaline Phosphatase (39-117) U/L Total Protein (6.5-8.0) g/dL Albumin (3.5-5.0) g/dL Peritoneal WBC 0.574 X10*3/uL Peritoneal RBC 0.004 X10*6/uL Periton Neutrophils 6 % Periton Lymphocytes 59 % Peritoneal Monocytes 6 % Peritoneal Other Cells 29 % Discharge Plan Discharge Clinical Impression: Cirrhosis of liver with ascites Patient Disposition: Home, Self-Care Instructions: Ascites (ED), Paracentesis (DC) Additional Instructions: Please follow-up with your primary care physician tomorrow and with your asphalt blender as scheduled. If you have any worsening or new symptoms, please return to the emergency room or call 911 Prescriptions: No Action furosemide [Lasix] 20 mg tablet 20 mg PO DAILY Qty: 20 0RF furosemide [Lasix] 20 mg tablet 20 mg PO DAILY Qty: 20 0RF
[2021-12-25] MEDS: Lidocaine HCl 2 % MPF 5 ML VIAL 10 ML INFILTRATI (13:37)
[2021-12-25 14:10] LABS: RBC Peritoneal Fluid 0.004 X10*6/uL; WBC Peritoneal Fluid 0.574 X10*3/uL
[2021-12-25 14:30] LABS: BF Shift QC OK YES; Lymphocyte Peritoneal Fl 59 %; Monocytes Peritoneal Fl 6 %; Neutrophils Peritoneal Fluid 6 %; Other Peritioneal Fl 29 %
[2021-12-25] MEDS: Albumin Human 25 % 100 ML IV ×2 (14:35→15:28)
--- NOTE | 2021-12-25 14:59 | PC.NURSE ---
about 10 L taken from paracentesis
[2021-12-26 07:19] LABS: Albumin Peritoneal Fluid 1.4; LDH Peritoneal Fluid 58; Total Protein Peritoneal Fluid 2.2
[2021-12-26 07:20] LABS: Glucose Peritoneal Fluid 126
[2021-12-26 07:21] LABS: Amylase Peritoneal Fluid 24
== END 2021-12-25 16:30 | disposition home or self-care (01) ==
PROVIDERS: Emergency Provider Emergency Medicine; PCP Nurse Practitioner Adult Health
DX: K74.60 Unspecified cirrhosis of liver (principal); R06.00 Dyspnea, unspecified; D64.9 Anemia, unspecified; Z79.899 Other long term (current) drug therapy
CPT/HCPCS: 36415; 49083; 80048; 80076; 82042; 82150; 82945; 83615; 84157; 85025; 85610; 85730; 89051; 96365; 99284; P9047

== ENCOUNTER 2022-01-22 10:38 | Emergency (ER) | payer MEDICAID, SELFPAY ==
[2022-01-22 10:51] VITALS: BP 136/80; PULSE 104; RESP 16; TEMP 37.3; O2SAT 98; BMI 30.7
--- NOTE | 2022-01-22 10:56 | ED_ITS ---
HPI - General Adult General Chief complaint: General Medical Stated complaint: stomach drain Time Seen by Provider: 01/22/22 10:56 Source: patient Mode of arrival: ambulatory Limitations: no limitations History of Present Illness HPI narrative: 51 years old male came in for evaluation of worsening of abdominal distension. 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 Patient was supposed to see a GI doctor 2 weeks ago he missed appointment because he just started a new job. Patient declined any shortness of breath except at nighttime when he lay supine. Related Data Previous Rx's Medication Instructions Recorded furosemide 20 mg tablet (Lasix) 20 mg PO DAILY #20 tab 11/01/21 furosemide 20 mg tablet (Lasix) 20 mg PO DAILY #20 tab 12/04/21 Allergies Allergy/AdvReac Type Severity Reaction Status Date / Time No Known Allergies Allergy Verified 10/24/21 13:59 Review of Systems Review of Systems: All other systems are reviewed and are negative Constitutional: Reports as per HPI and Reports no additional constitutional complaints Eyes: Reports as per HPI and Reports no additional eye complaints Reports system reviewed and no additional complaints, except as documented Cardiovascular: Reports as per HPI and Reports no additional cardiovascular complaints Respiratory: Reports as per HPI and Reports no additional respiratory complaints Gastrointestinal: Reports as per HPI and Reports no additional gastrointestinal complaints Genitourinary: Reports no additional female genitourinary complaints Musculoskeletal: Reports no additional musculoskeletal complaints Skin/Breast: Reports system reviewed and no additional complaints, except as docu Psychiatric: Reports no additional psychiatric complaints Endocrine: Reports no additional endocrine complaints Hematologic/Lymphatic: Reports no additional hematologic/lymphatic complaints Allergic/Immunologic: Reports no additional allergic/immunologic complaints Reports system reviewed and no additional complaints, except as documented and Reports Abnormal speech present [facility] Past Medical History Medical History Ascites Cirrhosis EtOH dependence Social History Social History Alcohol intake: former Patient Tobacco Use Status: Current everyday Tobacco user Smoked in Last 30 Days: Yes Use of substances other than those prescribed or required for medical reasons: No Advance Directives: No Advance Directives Information Provided: No Physical Exam ED Vital Signs: Vital Signs - 24 hr 01/22/22 10:51 01/22/22 14:23 Temperature 99.1 F Pulse Rate 104 H Respiratory Rate 16 Blood Pressure 136/80 105/69 Pulse Oximetry 98 BMI result Body Mass Index 30.7 Vital signs have been reviewed as appeared to be correct. Blood pressure normal. Heart rate normal. Respiration rate normal. Temperature normal. Oxygen saturation normal. Appearance: Alert. Oriented X3. No acute distress. Head: Normal external exam. Normocephalic. Atraumatic. No Castillo signs noted. No raccoon eyes noted Eyes: PERRLA. EOMI. Conjunctiva and sclera normal. Eyelids normal. ENT: TM's Normal. Pharynx normal. Uvula midline. Moist mucous membranes. No trismus noted. No drooling noted. No muffled voice noted. Neck: Normal inspection. Neck supple. FROM. No adenopathy. Thyroid Normal. No meningeal signs. No neck mass noted. CVS: Normal heart rate and rhythm. Heart sound normal. No murmurs noted. Pulses normal throughout. Respiratory: No respiratory distress. Painless inspiration. Breath sounds normal. No wheezes/rales/rhonchi noted. Chest nontender. No accessory muscle usage noted or decreased air movement noted. Abdomen: Distended, dull to percussion with shifting resonance. No tenderness or rebound tenderness. Bowel sounds normal in all 4 quadrants. No distention noted. No organomegaly noted. No visible injury noted. Back: No CVA tenderness. Full range of motion noted. Skin: Skin warm and dry. Normal skin color. Normal skin turgor. No rashes/lesions/lacerations noted. Extremities: No lower extremity edema. Extremities exhibit normal range of motion. Extremities nontender. Neuro: Oriented X 3. Cranial nerve exam: II-XII are grossly intact No motor deficit. No sensory deficit. Reflexes normal. Course Course Course Narrative: Assessment and plan. 51-year-old male history alcoholic liver cirrhosis (currently not drinking). Came in with abdominal distension, no fever, no chills, no abdominal pain status post abdominal paracentesis, patient is not showing any sign of bleeding, the ascites fluid with low RBCs which is not consistent with bleed or complication from the procedure, patient was observed after the procedure for 2 hours shows no bleeding. Blood pressure been within normal range, albumin was administrated IV. Will discharge the patient, patient was instructed to keep his appointment with GI. Medical Decision Making Lab Data Result diagrams: 01/22/22 11:12 Labs: Lab Results 01/22/22 01/22/22 01/22/22 Range/Units 11:12 11:12 13:59 WBC 6.3 (4.8-10.8) X10*3/uL RBC 3.67 L D (4.60-5.80) X10*6/uL Hgb 8.7 L (14.0-18.0) g/dl Hct 30.2 L D (42.0-52.0) % MCV 82.3 (80.0-98.0) fL MCH 23.7 L (27.0-33.0) pg MCHC 28.8 L (31.0-36.0) g/dl RDW 21.8 H (11.0-16.0) % Plt Count 195 (160-400) X10*3/uL MPV 9.8 (9.4-12.4) fL Immature Gran % (Auto) 0.3 (0.0-0.4) % Neut % (Auto) 74.8 H (45-73) % Lymph % (Auto) 13.3 L (20-40) % [place] % (Auto) 10.1 (2-11) % Eos % (Auto) 0.9 (0-4) % Baso % (Auto) 0.6 (0-2) % Lymph # (Auto) 0.8 L (1.2-4.9) X10*3/uL [place] # (Auto) 0.6 (0.1-1.2) X10*3/uL Eos # (Auto) 0.1 (0.0-0.4) X10*3/uL Baso # (Auto) 0.0 (0.0-0.2) X10*3/uL Abs Immat Gran (auto) 0.02 (0.00-0.03) X10*3/uL Absolute Neuts (auto) 4.7 (2.0-8.3) x10*3/uL Absolute Nucleated RBC 0.000 (0.0-0.012) X10*3/uL Nucleated RBC % (auto) 0.0 (0.0-0.2) /100WBC PT 19.0 H (9.9-13.0) SEC INR 1.7 H (0.9-1.1) APTT 31.2 (24.1-38.0) SEC Peritoneal WBC 0.483 X10*3/uL Peritoneal RBC 0.004 X10*6/uL Discharge Plan Discharge Clinical Impression: Abdominal ascites, Alcoholic cirrhosis Patient Disposition: Home, Self-Care Instructions: Paracentesis (DC) Prescriptions: No Action furosemide [Lasix] 20 mg tablet 20 mg PO DAILY Qty: 20 0RF furosemide [Lasix] 20 mg tablet 20 mg PO DAILY Qty: 20 0RF Referrals: Angelika Collins NP [Primary Care Provider] - 2 days Suzie Palumbo MD [Physician] - 2 days
[2022-01-22 11:16] LABS: MANUAL DIFF FLAG NO
[2022-01-22 11:17] LABS: Basophils Percent Auto 0.6 % (0-2); Eosinophils Absolute Auto 0.1 X10*3/uL (0.0-0.4); Eosinophils Percent Auto 0.9 % (0-4); Hematocrit 30.2 % (42.0-52.0); Hemoglobin 8.7 g/dl (14.0-18.0); Imm Gran Abs Auto 0.02 X10*3/uL (0.00-0.03); Imm Gran Pct Auto 0.3 % (0.0-0.4); Lymphocytes Absolute Auto 0.8 X10*3/uL (1.2-4.9); Lymphocytes Percent Auto 13.3 % (20-40); Mean Corpuscular HGB Conc 28.8 g/dl (31.0-36.0); Mean Corpuscular Hemoglobin 23.7 pg (27.0-33.0); Mean Corpuscular Volume 82.3 fL (80.0-98.0); Mean Platelet Volume 9.8 fL (9.4-12.4); Monocytes Absolute Auto 0.6 X10*3/uL (0.1-1.2); Monocytes Percent Auto 10.1 % (2-11); Neutrophils Absolute Auto 4.7 x10*3/uL (2.0-8.3); Neutrophils Percent Auto 74.8 % (45-73); Platelet Count 195 X10*3/uL (160-400); Red Blood Count 3.67 X10*6/uL (4.60-5.80); Red Cell Distribution Width 21.8 % (11.0-16.0); White Blood Count 6.3 X10*3/uL (4.8-10.8)
[2022-01-22 11:36] LABS: INTERNATIONAL NORM RATIO 1.7 (0.9-1.1)
[2022-01-22 11:39] LABS: Partial Thromboplastin Time 31.2 SEC (24.1-38.0)
--- NOTE | 2022-01-22 13:38 | PC.NURSE ---
MD in to bedside for paracentesis.
[2022-01-22] MEDS: Albumin Human 25 % 100 ML IV (13:59)
[2022-01-22 14:11] LABS: MN% 93.5 %; PMN% 6.5 %; RBC Peritoneal Fluid 0.004 X10*6/uL; WBC Peritoneal Fluid 0.483 X10*3/uL
--- NOTE | 2022-01-22 14:22 | PC.NURSE ---
Paracentesis is complete at this time, 5.6L of peritoneal fluid was drained from pt's abd. Albumin hung and running per jan. BP 105/69. Pt denies discomfort at this time, provided with elisabet escobar per request.
[2022-01-22 14:23] VITALS: BP 105/69
[2022-01-22 14:51] LABS: Lymphocyte Peritoneal Fl 56 %; Monocytes Peritoneal Fl 13 %; Neutrophils Peritoneal Fluid 5 %
[2022-01-22 14:52] LABS: BF Shift QC OK YES; Man Diluent Bkgrd OK YES; Other Peritioneal Fl 26 %
[2022-01-22 15:06] VITALS: BP 124/77; PULSE 87; RESP 18; TEMP 36.9; O2SAT 98
--- NOTE | 2022-01-22 15:07 | PC.NURSE ---
RN assumed care at 1500. Pt alert and oriented x4, calm and cooperative. Pt denies pain at this time. Per pt and previous RN pt tolerated paracentesis well. Pt denies SOB. Vitals stable. Finishing IV albumin now.
[2022-01-23 07:45] LABS: Albumin Peritoneal Fluid 1.5; Total Protein Peritoneal Fluid 2.6
[2022-01-23 07:46] LABS: Glucose Peritoneal Fluid 120; LDH Peritoneal Fluid 61
[2022-01-23 07:47] LABS: Amylase Peritoneal Fluid 24; Creatinine Peritoneal Fluid 0.5
[2022-01-23 09:14] LABS: pH Peritoneal Fluid 7.52
== END 2022-01-22 15:29 | disposition home or self-care (01) ==
PROVIDERS: Emergency Provider Emergency Medicine; PCP Nurse Practitioner Adult Health
DX: K70.30 Alcoholic cirrhosis of liver without ascites (principal); R18.8 Other ascites; F17.200 Nicotine dependence, unspecified, uncomplicated; Z71.6 Tobacco abuse counseling; Z79.899 Other long term (current) drug therapy
CPT/HCPCS: 36415; 82042; 82150; 82945; 83615; 83986; 84157; 85025; 85610; 85730; 87071; 87073; 87205; 89051; 99284; P9047

== ENCOUNTER 2022-02-12 10:46 | Inpatient (IN) | payer MEDICAID, SELFPAY ==
--- NOTE | ~2022-02-12 | XR_ITS ---
EXAMINATION: XR CHEST CLINICAL INFORMATION: Shortness of breath COMPARISON: Chest x-ray 08/01/2021 TECHNIQUE: Frontal view of the chest was obtained. FINDINGS: Cardiac silhouette is normal in size. Lungs are hypoinflated. Subtle linear opacities of the left lung base are most suggestive of atelectasis. There is no lobar consolidation. No pleural effusion or pneumothorax. Old left clavicle fracture, healed. XR/XR chest 1V IMPRESSION: Hypoinflated lungs without acute pulmonary pathology.
--- NOTE | ~2022-02-12 | US_ITS ---
EXAMINATION: ULTRASOUND-GUIDED PARACENTESIS CLINICAL INFORMATION: Ascites. COMPARISON: Previous exam October 2021. TECHNIQUE: Procedure and risks and benefits including bleeding, infection and low blood pressure were discussed with the patient and informed consent was obtained. The right lower quadrant was prepped and draped in the usual sterile fashion. The skin and soft tissues were anesthetized with 1% lidocaine plain. Using ultrasound guidance and a 5 Lao rapid centesis catheter, access to the ascitic fluid was obtained. 11 L of clear yellow fluid was removed. Diagnostic specimen was sent as requested by the ordering physician. FINDINGS: There is a large amount of ascites. US/US paracentesis abd w/image IMPRESSION: Ultrasound-guided paracentesis.
[2022-02-12 10:56] VITALS: BP 123/86; PULSE 92; RESP 18; TEMP 37.2; O2SAT 96; BMI 30.4
--- NOTE | 2022-02-12 12:20 | ED_ITS ---
HPI - General Adult General Chief complaint: General Medical Stated complaint: ABD FLUID NEEDS DRAINING Time Seen by Provider: 02/12/22 12:05 Source: patient Mode of arrival: ambulatory History of Present Illness HPI narrative: 51-year-old male with a past medical history of ETOH dependence, anemia, ascites, cirrhosis s/p multiple paracentesis', presenting to the ED complaining of abdominal distension and mild SOB x1 month, requesting paracentesis. Admits was recently seen in the ED on 01/22/22 and had 5L drained. States has been un able to see GI, has an appointment in March or April. Denies fever, chills, abdominal pain, nausea, vomiting, diarrhea, dysuria/hematuria, CP, cough Onset (ago): week(s) Related Data Home Medications Medication Instructions Recorded Confirmed acamprosate 333 mg tablet,delayed 666 mg PO TID 02/12/22 02/12/22 release folic acid 1 mg tablet 1 mg PO DAILY 02/12/22 02/12/22 spironolactone 50 mg tablet 50 mg PO DAILY 02/12/22 02/12/22 thiamine HCl (vitamin B1) 100 mg 1 tab PO BID 02/12/22 02/12/22 tablet Allergies Allergy/AdvReac Type Severity Reaction Status Date / Time No Known Allergies Allergy Verified 02/12/22 11:01 Review of Systems Review of Systems: Constitutional: No Fever, No Chills, No Fatigue, No Malaise ENT/Mouth: No Ear Pain, No Nasal Congestion, No Hoarseness, No sore throat, No Rhinorrhea, No Swallowing Difficulty Eyes: No Eye Pain, No Swelling, No Redness, No Discharge Cardiovascular: No Chest Pain, + SOB, No Dyspnea on Exertion, No Orthopnea, No Edema Respiratory: No Cough, No Sputum, No Dyspnea Gastrointestinal: No Nausea, No Vomiting, No Diarrhea, No Constipation, No Abdominal pain, +abdominal distension Genitourinary: No irregular bleeding, No Dysuria, No Urinary Frequency, No Hematuria, No Urinary Incontinence, No Urgency, No Flank Pain Musculoskeletal: No joint pain, No Myalgias, No Joint Swelling Skin: No Skin Lesions, No rash Neuro: No Weakness, No Numbness, No Dizziness, No Headache Yes all other systems are reviewed and are negative PMFSH Past Medical History Attestation statement: The following information was validated with the patient. Medical History Ascites Cirrhosis EtOH dependence Family History Family History (Updated 02/12/22 @ 14:52 by Hero Winn MD) Other Alcoholism Social History Social History Alcohol intake: former Patient Tobacco Use Status: Current everyday Tobacco user Advance Directives: No Advance Directives Information Provided: Yes Physical Exam ED Vital Signs: Vital Signs - 24 hr 02/12/22 10:56 Temperature 99 F Pulse Rate 92 Respiratory Rate 18 Blood Pressure 123/86 Pulse Oximetry 96 BMI result Body Mass Index 30.4 Const General: cooperative, healthy appearing, no acute distress, well developed, alert and awake Orientation/consciousness: patient oriented x3 Limitations: no limitations HENMT Head: Yes normal to inspection and Yes atraumatic Ears: hearing grossly normal bilaterally General nose exam: Normal external nose present Face and sinus: Yes normal facial exam Eyes General: appearance normal, both eyes and all related structures EOM: EOMs intact bilaterally Neck Neck: Yes normal visual inspection and Yes no meningeal signs Resp Effort & Inspection: normal respiratory effort and no respiratory distress Auscultation: clear to auscultation bilaterally, no crackles, no rales, no rho nchi and no wheezes Cardio Rate: regular rate Heart sounds: S1 normal heart sound present and S2 normal heart sound present GI Inspection: Yes normal to inspection and Yes distended Palpation (GI): Soft to palpation, not firm, nontender, no guarding, not rigid, Hernia present umbilical and No Rebound tenderness present General: Yes no CVA tenderness Back/Spine/Pelvis Back: no CVA tenderness Skin Rashes: no rashes Wounds: no wounds Neuro General: patient oriented x3, tone normal, moves all extremities and no meningeal signs Gait exam (Neuro): Normal gait present Extrem General: Yes normal to inspection Course Course Course Narrative: -1340--leukopenic to 4.2, anemic to 7.5 > patient with known anemia. Denies rectal bleeding/melena, hematuria, hematemesis. -platelets mildly low to 112. Coags WNL -potassium low at 2.4 > 60 p.o. mEq and 20 IV mEq repletion ordered. Calcium critically low at 5.3 > 2g of IV calcium gluconate ordered. Magnesium 1.2 > 2g IV repletion ordered. -albumin also low at 2.0 > 25GM x2 ordered Plan to admit for further management. Will hold on paracentesis until electrolytes are repleted as paracentesis is not emergent and abdomen is soft/nontender, low suspicion for SBP XR chest 1V IMPRESSION: Hypoinflated lungs without acute pulmonary pathology. ? Medical Decision Making MDM Narrative Medical decision making narrative: 51-year-old male with a past medical history of ETOH dependence, anemia, ascites, cirrhosis s/p multiple paracentesis', presenting to the ED complaining of abdominal distension and mild SOB x1 month, requesting paracentesis. On exam vital signs stable, and 80/nontoxic appearing, abdomen distended, soft, nontender, no rebound/guarding, no pedal edema, lungs CTA. Low concern for SBP or CHF. Plan: Labs, CXR, therapeutic paracentesis Medical Records Medical records reviewed: Yes I reviewed the patient's medical records. Lab Data Lab results reviewed: Yes I reviewed the patient's lab results. Result diagrams: 02/12/22 12:48 02/12/22 12:48 Labs: Lab Results 02/12/22 02/12/22 02/12/22 Range/Units 12:48 12:48 12:48 WBC 4.2 L (4.8-10.8) X10*3/uL RBC 3.19 L (4.60-5.80) X10*6/uL Hgb 7.5 L (14.0-18.0) g/dl Hct 25.5 L (42.0-52.0) % MCV 79.9 L (80.0-98.0) fL MCH 23.5 L (27.0-33.0) pg MCHC 29.4 L (31.0-36.0) g/dl RDW 21.8 H (11.0-16.0) % Plt Count 112 L D (160-400) X10*3/uL MPV 10.0 (9.4-12.4) fL Immature Gran % (Auto) 0.2 (0.0-0.4) % Neut % (Auto) 63.4 (45-73) % Lymph % (Auto) 22.7 (20-40) % Noble % (Auto) 10.5 (2-11) % Eos % (Auto) 2.2 (0-4) % Baso % (Auto) 1.0 (0-2) % Lymph # (Auto) 1.0 L (1.2-4.9) X10*3/uL [place] # (Auto) 0.4 (0.1-1.2) X10*3/uL Eos # (Auto) 0.1 (0.0-0.4) X10*3/uL Baso # (Auto) 0.0 (0.0-0.2) X10*3/uL Abs Immat Gran (auto) 0.01 (0.00-0.03) X10*3/uL Absolute Neuts (auto) 2.7 (2.0-8.3) x10*3/uL Absolute Nucleated RBC 0.000 (0.0-0.012) X10*3/uL Nucleated RBC % (auto) 0.0 (0.0-0.2) /100WBC PT 18.0 H (9.9-13.0) SEC INR 1.6 H (0.9-1.1) APTT 32.9 (24.1-38.0) SEC Sodium 144 (135-145) mmol/L Potassium 2.4 L* D (3.3-5.1) mmol/L Chloride 121 H (96-108) mmol/L Carbon Dioxide 17 L (22-29) mmol/L Anion Gap 9 L (12-20) BUN 7 L (9-16) mg/dL Creatinine 0.40 L (0.5-1.4) mg/dL Estim Creat Clear Calc 233.5 Estimated GFR > 60 Random Glucose 75 D (60-115) mg/dL Calcium 5.3 L* D (8.4-10.2) mg/dL Magnesium 1.2 L* (1.6-2.6) mg/dL Iron 15 L (45-160) mcg/dL TIBC 263 (228-428) mcg/dL % Saturation 6 L (15-50) % Unsat Iron Binding 248 ug/dL Ferritin 23 (20-250) ng/mL Total Bilirubin 0.5 (0.0-1.0) mg/dL Direct Bilirubin 0.4 (0.0-0.5) mg/dL AST 36 (5-37) U/L ALT 16 (0-40) U/L Alkaline Phosphatase 72 D (39-117) U/L Total Protein 4.1 L D (6.5-8.0) g/dL Albumin 2.0 L D (3.5-5.0) g/dL Lipase 35 (8-78) U/L TSH 1.52 (0.32-4.0) uIU/mL ECG Data Attestation: I personally reviewed and interpreted this ECG as follows: Prior ECG tracings: not available for review Interpretation: EKG normal sinus rhythm with short MT. Rate of 74. MT interval 108. QRS 78. No previous EKGs to compare Discharge Plan Discharge Clinical Impression: Hypocalcemia, Abdominal ascites, Hypokalemia, Hypomagnesemia Patient Disposition: Admitted As Inpatient
[2022-02-12 12:53] LABS: MANUAL DIFF FLAG NO
[2022-02-12 13:18] LABS: Eosinophils Absolute Auto 0.1 X10*3/uL (0.0-0.4); Eosinophils Percent Auto 2.2 % (0-4); Hematocrit 25.5 % (42.0-52.0); Hemoglobin 7.5 g/dl (14.0-18.0); Imm Gran Abs Auto 0.01 X10*3/uL (0.00-0.03); Imm Gran Pct Auto 0.2 % (0.0-0.4); Lymphocytes Percent Auto 22.7 % (20-40); Mean Corpuscular HGB Conc 29.4 g/dl (31.0-36.0); Mean Corpuscular Hemoglobin 23.5 pg (27.0-33.0); Mean Corpuscular Volume 79.9 fL (80.0-98.0); Monocytes Absolute Auto 0.4 X10*3/uL (0.1-1.2); Monocytes Percent Auto 10.5 % (2-11); Neutrophils Absolute Auto 2.7 x10*3/uL (2.0-8.3); Neutrophils Percent Auto 63.4 % (45-73); Platelet Count 112 X10*3/uL (160-400); Red Blood Count 3.19 X10*6/uL (4.60-5.80); Red Cell Distribution Width 21.8 % (11.0-16.0); White Blood Count 4.2 X10*3/uL (4.8-10.8)
[2022-02-12 13:26] LABS: INTERNATIONAL NORM RATIO 1.6 (0.9-1.1)
[2022-02-12 13:29] LABS: Alanine Aminotransferase 16 U/L (0-40); Alkaline Phosphatase 72 U/L (39-117); Anion Gap 9 (12-20); Aspartate Amino Transferase 36 U/L (5-37); Bilirubin Direct 0.4 mg/dL (0.0-0.5); Bilirubin Total 0.5 mg/dL (0.0-1.0); Blood Urea Nitrogen 7 mg/dL (9-16); Calcium 5.3 mg/dL (8.4-10.2); Carbon Dioxide 17 mmol/L (22-29); Chloride 121 mmol/L (96-108); Creatinine Clr Calc Pharmacy 233.5; Estimated Glomerular Filt Rate > 60; Glucose Random 75 mg/dL (60-115); Lipase 35 U/L (8-78); Magnesium 1.2 mg/dL (1.6-2.6); Partial Thromboplastin Time 32.9 SEC (24.1-38.0); Potassium 2.4 mmol/L (3.3-5.1); Sodium 144 mmol/L (135-145); Total Protein 4.1 g/dL (6.5-8.0)
--- NOTE | 2022-02-12 13:43 | ECG_ITS ---
Test Reason : ABDOMINAL PAIN Blood Pressure : / mmHG Vent. Rate : 074 BPM Atrial Rate : 074 BPM P-R Int : 108 ms QRS Dur : 078 ms QT Int : 416 ms P-R-T Axes : 045 027 004 degrees QTc Int : 461 ms Sinus rhythm with short SC Otherwise normal ECG No previous ECGs available Referred By: Teri Sandoval Electronically Signed By:RYAN GIMENEZ MD
--- NOTE | 2022-02-12 14:09 | P.HPHOSP_ITS ---
History of Present Illness Date of Service: 02/12/22 Chief Complaint: Increasing abdominal girth 51 year old male with alcohol dependency complicated by cirrhosis of liver his on acamprostate, ascietes with monthly paracentesis of up to 10 liters drained at a time, last paracentesis january 22 in ED with romoval of 5 liter. He presents with increasing abdominal distention with mild shortness of breath since last paracentesis. He has no abdominal pain or fever. He has a host of abnormal labs, including potassium of 2.4, magnesium of 1.2, albumin of 2, calcium 5.3, INR 1.6, hemoglobin of 7.5, O2 sat is normal. He claims his last drink was over 2 weeks ago. He has no obvious sings of alcohol withdrawal Review of Systems Review of Systems: Gen: no fever Resp: very mild sob, no cough CV: no chest, no FARR, no leg edema GI: No n/v, abdominlal distention but no pain Neuro: No confusion Yes all other systems are reviewed and are negative [facility] Medical History Ascites Cirrhosis EtOH dependence Family History (Updated 02/12/22 @ 14:52 by Hero Winn MD) Other Alcoholism Social History Alcohol intake: former Patient Tobacco Use Status: Current everyday Tobacco user Advance Directives: No Advance Directives Information Provided: Yes Meds Allergies Allergy/AdvReac Type Severity Reaction Status Date / Time No Known Allergies Allergy Verified 02/12/22 11:01 Active Medications: Current Medications Potassium Chloride () 10 meq in 100 mls @ 100 mls/hr IV Q1H KHUSHBU Stop: 02/12/22 15:44 Magnesium Sulfate (Magnesium Sulfate/H2o) 2 gm in 50 mls @ 25 mls/hr IV ONCE ONE Stop: 02/12/22 15:39 Albumin Human (Kedbumin 25 %) 100 mls @ 100 mls/hr IV Q1H KHUSHBU Stop: 02/12/22 15:44 Calcium Gluconate (Calcium Gluconate) 2 gm in 100 mls @ 50 mls/hr IV ONCE ONE Stop: 02/12/22 15:43 Pharmacy Consult (Consult Rx Perform Med Rec) 1 each MISCELLANE ONCE PRN PRN Reason: Consult order Home Medications Medication Instructions Recorded Confirmed Last Taken Type acamprosate 333 mg tablet,delayed 666 mg PO TID 02/12/22 02/12/22 Unknown History release folic acid 1 mg tablet 1 mg PO DAILY 02/12/22 02/12/22 Unknown History spironolactone 50 mg tablet 50 mg PO DAILY 02/12/22 02/12/22 Unknown History thiamine HCl (vitamin B1) 100 mg 1 tab PO BID 02/12/22 02/12/22 Unknown History tablet Physical Exam Vital Signs and Narrative: Vital Signs: Last Vital Signs Temp 99 F 02/12/22 10:56 Pulse 92 02/12/22 10:56 Resp 18 02/12/22 10:56 BP 123/86 02/12/22 10:56 Pulse Ox 96 02/12/22 10:56 BMI result Body Mass Index 30.4 Const: Other: Constitutional: Alert, in no distress, Mental Status: Oriented to person, place and time. Eyes: Pupils are equal, round and reactive to light. Ear, Nose and Throat: Oropharynx clear, mucous membranes moist. Ears and nose without eformities. Trachea midline. Respiratory: Clear to auscultation. No wheezing, rales or rhonchi. Cardiovascular: S1 S2 regular. No murmurs, rubs or gallops. Gastrointestinal: Neurologic: Cranial nerves II-XII grossly intact. No focal neurological deficits. Moves all extremities spontaneously.? Skin: No rashes or lesions.? Musculoskeletal: No cyanosis or clubbing. Psychiatric: Normal mood and affect? Results Labs CBC and Chem 7: 02/12/22 12:48 02/12/22 12:48 Labs: Laboratory Results - last 24 hr 02/12/22 02/12/22 02/12/22 12:48 12:48 12:48 MCV 79.9 L MCH 23.5 L MCHC 29.4 L RDW 21.8 H Plt Count 112 L D MPV 10.0 Immature Gran % (Auto) 0.2 Neut % (Auto) 63.4 Lymph % (Auto) 22.7 [place] % (Auto) 10.5 Eos % (Auto) 2.2 Baso % (Auto) 1.0 Lymph # (Auto) 1.0 L [place] # (Auto) 0.4 Eos # (Auto) 0.1 Baso # (Auto) 0.0 Abs Immat Gran (auto) 0.01 Absolute Neuts (auto) 2.7 Absolute Nucleated RBC 0.000 Nucleated RBC % (auto) 0.0 PT 18.0 H INR 1.6 H APTT 32.9 Potassium 2.4 L* D Carbon Dioxide 17 L Anion Gap 9 L Estim Creat Clear Calc 233.5 Estimated GFR > 60 Random Glucose 75 D Calcium 5.3 L* D Magnesium 1.2 L* Total Bilirubin 0.5 Direct Bilirubin 0.4 AST 36 ALT 16 Alkaline Phosphatase 72 D Total Protein 4.1 L D Albumin 2.0 L D Lipase 35 Assessment and Plan (1) Hypocalcemia: Status: Acute (2) Abdominal ascites: Status: Acute (3) Hypokalemia: Status: Acute (4) Hypomagnesemia: Status: Acute (5) Ascites due to alcoholic cirrhosis: Status: Acute Plan 51/ma with cirrhosis, recurrent ascietes here with symptomatic ascietes and multiple abnormal labs plan: #Symptomatic ascietes with no evidence of SBP--hemodynamically stable, no acute resp failure -Arrange for paracentesis tomorrow #Hypokalemia--IV and oral replacement and repeat level tomorrow #Hypomagnesemia--IV replacement and recheck tomorrow, avoid PPI #HypOcalcemia--corrected for alcubmin is 7, can give oral calcium #Coagulopathy--INR 1.6 d/t advance liver disease, no bleedig issues -Give Vit K 10 mgg daily x 3 days #Alcoholic liver cirrhosis--Abstience is brown here, risk discussed with patient, has outpatient GI follow up coming -medical management with aldactone, Lasix at discharge #Alcohol dependency--risk of withdrawal is seem low given that last drink was 2 weeks ago, however will monitor for signs of withdrawal #Hypoalbuminemia--he needs to stop drinking and opitimize his nutrition #Metabolic acidosis--due to alcohol, bicab 17, just monitor for now #Anemia of chronic disease--H/H is low yet stable with no acute bleed, -monitor, avoid anticoagulation -check B12, folate, TSH and iron studies #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 DVT prophylaxis: No chemical prophylaxis d/t severe anemia and high INR admission will span 2 midnight to allow for management of symptomatic anemia and ample time to correct and stabilize electrolytes Full Code Quality Stroke Does the patient have a stroke diagnosis?: No VTE Prior VTE?: No VTE Risk Level:: Medical - low VTE Device Contraindication: Procedure Contraindicated VTE Drug Contraindication: Treatment Not Indicated
--- NOTE | 2022-02-12 14:27 | PHA.MEDREC ---
MED REC COMPLETE, NO ISSUES Pharmacy Consult ? Medication Reconciliation Pharmacy has completed the medication reconciliation.
[2022-02-12 14:35] LABS: Iron 15 mcg/dL (45-160); Percent Iron Saturation 6 % (15-50); Total Iron Binding Capacity 263 mcg/dL (228-428); Unsaturated Iron Binding 248 ug/dL
[2022-02-12] MEDS: Potassium Chloride/H20 10 MEQ/100 ML PIGGYBACK 100 MEQ IV ×2 (14:38→16:06)
[2022-02-12] MEDS: Calcium Gluconate/NaCl,Iso-Osm 2 GM/100 ML PLAST..BAG IV (14:38)
[2022-02-12] MEDS: Magnesium Sulfate/H2O 2 GM/50 ML PIGGYBACK IV (14:38)
[2022-02-12] MEDS: Potassium Chloride Packet 20 MEQ PACKET 60 MEQ PO (14:41)
[2022-02-12] MEDS: Lidocaine HCl 1 % MPF 5 ML VIAL SUBCUT (14:46)
[2022-02-12] MEDS: Phytonadione (Vit K1) Oral 10 MG/ML AMPUL PO (14:46)
[2022-02-12] MEDS: Albumin Human 25 % 100 ML IV ×2 (14:47→16:12)
[2022-02-12 14:56] LABS: Ferritin 23 ng/mL (20-250); Thyroid Stimulating Hormone 1.52 uIU/mL (0.32-4.0)
[2022-02-12 15:13] LABS: Magnesium 2.1 mg/dL (1.6-2.6)
[2022-02-12 15:19] LABS: COVID-19 Test Negative (Negative); IDNOW Serial# 16C4AD1C
[2022-02-12] MEDS: Acamprosate Calcium 333 MG TABLET.DR 666 MG PO ×2 (16:23→20:32)
[2022-02-12 17:58] VITALS: BP 111/71; PULSE 93; RESP 12; TEMP 37.3; O2SAT 95
[2022-02-12] MEDS: Thiamine HCL 100 MG TABLET PO (20:32)
[2022-02-12 22:03] VITALS: BP 107/73; PULSE 104; RESP 18; TEMP 37.2; O2SAT 96
[2022-02-12 23:15] VITALS: BP 111/64; PULSE 90; RESP 16; O2SAT 95
[2022-02-13] VITALS (7 sets, daily range): BP systolic 99–135; BP diastolic 61–89; PULSE 83–96; RESP 14–20; TEMP 36.9–37.3; O2SAT 93–97
[2022-02-13] MEDS: 0.9 % Sodium Chloride Flush 3 ML SYRINGE IVFLUSH ×3 (02:04→15:29)
[2022-02-13 06:54] LABS: INTERNATIONAL NORM RATIO 1.8 (0.9-1.1); Prothrombin Time 20.7 SEC (9.9-13.0)
[2022-02-13 07:01] LABS: Anion Gap 12 (12-20); Blood Urea Nitrogen 9 mg/dL (9-16); Calcium 8.4 mg/dL (8.4-10.2); Carbon Dioxide 21 mmol/L (22-29); Chloride 107 mmol/L (96-108); Creatinine Clr Calc Pharmacy 145.9; Estimated Glomerular Filt Rate > 60; Glucose Random 91 mg/dL (60-115); Magnesium 1.9 mg/dL (1.6-2.6); Potassium 4.6 mmol/L (3.3-5.1); Sodium 135 mmol/L (135-145)
[2022-02-13] MEDS: Phytonadione (Vit K1) Oral 10 MG/ML AMPUL PO (08:49)
[2022-02-13] MEDS: Spironolactone 25 MG TABLET 50 MG PO (08:49)
[2022-02-13] MEDS: Thiamine HCL 100 MG TABLET PO (08:49)
[2022-02-13] MEDS: Folic Acid 1 MG TABLET PO (08:49)
[2022-02-13] MEDS: Acamprosate Calcium 333 MG TABLET.DR 666 MG PO ×2 (08:49→14:26)
--- NOTE | 2022-02-13 09:38 | MHC.CM.PN ---
Addendum entered by Ita Roper 02/13/22 09:41: pATIENT IS NOT VACCINATED. Original Note: Male 51 DX Symptomatic ascites lytes off He lives with G.F He is independent all function mobility. DP home no services family transport.
[2022-02-13 10:09] LABS: Folate > 20.0 ng/mL (> or = 4.0); Vitamin B12 287 pg/mL (200-900)
--- NOTE | 2022-02-13 11:08 | P.PNIM_ITS ---
Subjective Subjective Date of Service: 02/13/22 Interval History: f/u on ascietes with abdominal distention interval history: No change, no sob, no abdominal pain Review of Systems Gen: no fever Resp: very mild sob, no cough CV: no chest, no FARR, no leg edema GI: No n/v, abdominlal distention but no pain Neuro: No confusion Physical Exam Vital Signs: Vital Signs: Last Vital Signs Temp 98.5 F 02/13/22 08:40 Pulse 96 02/13/22 08:40 Resp 20 02/13/22 08:40 BP 135/77 02/13/22 08:40 Pulse Ox 96 02/13/22 08:40 BMI result Body Mass Index 30.4 Const: Other: General: AO X 3, no acute distress Resp: CTA bilateral CVS: S1,S2,RRR GI: +BS, NT, + distention, masive ascietes Skin: No rash Neuro: motor grossly intact Psych: appropriate affect Objective Data Active Medications Acamprosate (Acamprosate Calcium 333 Mg Tablet.) 666 mg PO TID [facility] Last Admin: 02/13/22 08:49 Dose: 666 mg Documented by: KACEY Folic Acid (Folic Acid 1 Mg Tablet) 1 mg PO DAILY [facility] Last Admin: 02/13/22 08:49 Dose: 1 mg Documented by: KACEY Melatonin (Melatonin 3 Mg Tablet) 6 mg PO BEDTIME PRN PRN Reason: Insomnia Pharmacy Consult (Consult Rx Perform Med Rec) 1 each MISCELLANE ONCE PRN PRN Reason: Consult order Phytonadione (Phytonadione (Vit K1) Oral 10 Mg/Ml Ampul) 10 mg PO DAILY [facility] Stop: 02/14/22 09:01 Last Admin: 02/13/22 08:49 Dose: 10 mg Documented by: ANGEL LUISEMA Sodium Chloride (0.9 % Sodium Chloride Flush 3 Ml Syringe) 3 ml IVFLUSH QSHIFT [facility] Last Admin: 02/13/22 08:49 Dose: 3 ml Documented by: KACEY Spironolactone (Spironolactone 25 Mg Tablet) 50 mg PO DAILY [facility]; Protocol Last Admin: 02/13/22 08:49 Dose: 50 mg Documented by: KACEY Thiamine HCl (Thiamine Hcl 100 Mg Tablet) 100 mg PO BID [facility] Last Admin: 02/13/22 08:49 Dose: 100 mg Documented by: KACEY Labs CBC & Chem 7: 02/12/22 12:48 02/13/22 06:16 Labs: Laboratory Results - last 24 hr 02/12/22 02/12/22 02/12/22 12:48 12:48 12:48 MCV 79.9 L MCH 23.5 L MCHC 29.4 L RDW 21.8 H Plt Count 112 L D MPV 10.0 Immature Gran % (Auto) 0.2 Neut % (Auto) 63.4 Lymph % (Auto) 22.7 [place] % (Auto) 10.5 Eos % (Auto) 2.2 Baso % (Auto) 1.0 Lymph # (Auto) 1.0 L [place] # (Auto) 0.4 Eos # (Auto) 0.1 Baso # (Auto) 0.0 Abs Immat Gran (auto) 0.01 Absolute Neuts (auto) 2.7 Absolute Nucleated RBC 0.000 Nucleated RBC % (auto) 0.0 PT 18.0 H INR 1.6 H APTT 32.9 Anion Gap 9 L Estim Creat Clear Calc 233.5 Estimated GFR > 60 Random Glucose 75 D Calcium 5.3 L* D Magnesium 1.2 L* Iron 15 L TIBC 263 % Saturation 6 L Unsat Iron Binding 248 Ferritin 23 Total Bilirubin 0.5 Direct Bilirubin 0.4 AST 36 ALT 16 Alkaline Phosphatase 72 D Total Protein 4.1 L D Albumin 2.0 L D Lipase 35 Vitamin B12 Folate TSH 1.52 COVID-19 ([place]) COVID-19 Clin Com 02/12/22 02/12/22 02/12/22 12:48 14:52 14:52 MCV MCH MCHC RDW Plt Count MPV Immature Gran % (Auto) Neut % (Auto) Lymph % (Auto) [place] % (Auto) Eos % (Auto) Baso % (Auto) Lymph # (Auto) [place] # (Auto) Eos # (Auto) Baso # (Auto) Abs Immat Gran (auto) Absolute Neuts (auto) Absolute Nucleated RBC Nucleated RBC % (auto) PT INR APTT Anion Gap Estim Creat Clear Calc Estimated GFR Random Glucose Calcium Magnesium 2.1 Iron TIBC % Saturation Unsat Iron Binding Ferritin Total Bilirubin Direct Bilirubin AST ALT Alkaline Phosphatase Total Protein Albumin Lipase Vitamin B12 287 Folate > 20.0 TSH COVID-19 ([place]) Negative COVID-19 Clin Com See Note 02/13/22 02/13/22 06:16 06:16 MCV MCH MCHC RDW Plt Count MPV Immature Gran % (Auto) Neut % (Auto) Lymph % (Auto) [place] % (Auto) Eos % (Auto) Baso % (Auto) Lymph # (Auto) [place] # (Auto) Eos # (Auto) Baso # (Auto) Abs Immat Gran (auto) Absolute Neuts (auto) Absolute Nucleated RBC Nucleated RBC % (auto) PT 20.7 H INR 1.8 H APTT Anion Gap 12 Estim Creat Clear Calc 145.9 Estimated GFR > 60 Random Glucose 91 Calcium 8.4 D Magnesium 1.9 Iron TIBC % Saturation Unsat Iron Binding Ferritin Total Bilirubin Direct Bilirubin AST ALT Alkaline Phosphatase Total Protein Albumin Lipase Vitamin B12 Folate TSH COVID-19 ([place]) COVID-19 Clin Com Assessment and Plan (1) Ascites due to alcoholic cirrhosis: Status: Acute (2) Abdominal ascites: Status: Acute (3) Hypokalemia: Status: Acute (4) Hypomagnesemia: Status: Acute (5) Hypocalcemia: Status: Acute Plan 51/ma with cirrhosis, recurrent ascietes here with symptomatic ascietes and multiple abnormal labs plan: #Symptomatic ascietes with no evidence of SBP--hemodynamically stable, no acute resp failure -Arrange for paracentesis today #Hypokalemia--IV and oral replacement and now level is normal at 4.6 #Hypomagnesemia--IV replacement and recheck 1.9 #HypOcalcemia--corrected for alcubmin is 7, can give oral calcium #Coagulopathy--INR 1.8 d/t advance liver disease, no bleedig issues -Give Vit K 10 mgg daily x 3 days if remains in hospital #Alcoholic liver cirrhosis--Abstience is brown here, risk discussed with patient, has outpatient GI follow up coming -medical management with aldactone, Lasix at discharge #Alcohol dependency--risk of withdrawal is seem low given that last drink was 2 weeks ago, however will monitor for signs of withdrawal #Hypoalbuminemia--he needs to stop drinking and opitimize his nutrition #Metabolic acidosis--due to alcohol, bicab 17, just monitor bicab now 21 #Anemia of chronic disease--H/H is low yet stable with no acute bleed, -monitor, avoid anticoagulation -B12, folate, TSH---all normal. 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 DVT prophylaxis: No chemical prophylaxis d/t severe anemia and high INR inpatient due to ascites that need inpatient paracentesis and corrrection of electrolytes. Full Code Quality Stroke Does the patient have a stroke diagnosis?: No VTE Prior VTE?: No VTE Risk Level:: Medical - low VTE Device Contraindication: Procedure Contraindicated VTE Drug Contraindication: Treatment Not Indicated
--- NOTE | 2022-02-13 16:54 | HO.RADPN ---
RADIOLOGY Narrative Narrative: RLQ paracentesis performed using 5 fr catheter. L clear yellow fluid removed. Specimen sent as ordered.
[2022-02-13] MEDS: Lidocaine HCl 1 % MPF 5 ML VIAL SUBCUT (17:42)
[2022-02-13 17:43] LABS: Lymphocyte Peritoneal Fl 84 %; Monocytes Peritoneal Fl 3 %; Neutrophils Peritoneal Fluid 11 %; Other Peritioneal Fl 2 %; RBC Peritoneal Fluid 0.005 X10*6/uL; WBC Peritoneal Fluid 0.454 X10*3/uL
[2022-02-13 17:44] LABS: BF Shift QC OK YES; MN% 91.5 %; Man Diluent Bkgrd OK YES; PMN% 8.5 %
--- NOTE | 2022-02-13 19:07 | PM.DS ---
DS: Providers Provider Date of Service: 02/13/22 Date of admission: 02/12/22 14:37 Primary care physician: Angelika Collins NP DS: Diagnosis Discharge Diagnosis (1) Ascites due to alcoholic cirrhosis: Status: Acute (2) Abdominal ascites: Status: Resolved (3) Hypokalemia: Status: Resolved (4) Hypomagnesemia: Status: Resolved (5) Hypocalcemia: Status: Resolved DS: Summary Hospital Course Hospital Course: Chief Complaint: Increasing abdominal girth 51 year old male with alcohol dependency complicated by cirrhosis of liver his on acamprostate, ascietes? with monthly paracentesis of up to 10 liters drained at a time, last paracentesis january 22 in ED with romoval of 5 liter.? He presents with increasing abdominal distention with mild shortness of breath since last paracentesis. He has no abdominal pain or fever. He has a host of abnormal labs, including potassium of 2.4, magnesium of 1.2, albumin of 2, calcium 5.3, INR 1.6, hemoglobin of 7.5, O2 sat is normal.? He claims his last drink was over 2 weeks ago. He has no obvious sings of alcohol withdrawal. Hospital course: Patient was observed overnight had paracenetesis with 11 liters of fluid removal on 02/14/12 and felt better after that and was discharged home and instructied to avoid alaohl Time Spent with Patient Time attestation: Total time spent providing and/or coordinating discharge services: Discharge coordination time: Greater than 30 minutes Quality: Safe Use of Opioids Does Pt have an Active Cancer Diagnosis on the Problem List?: No Quality: Stroke Does the patient have a stroke diagnosis?: No Physical Exam Vital Signs: Vital Signs: Last Vital Signs Temp 99.1 F 02/13/22 18:30 Pulse 83 02/13/22 18:30 Resp 18 02/13/22 18:30 BP 122/79 02/13/22 18:30 Pulse Ox 96 02/13/22 18:30 BMI result Body Mass Index 30.4 Const: Other: See progress note DS: Data Data Completed and Pending Completed studies during hospitalization [Text1]: Procedures Drainage of Peritoneal Cavity, Percutaneous Approach (02/12/22) Discharge Plan Discharge Anticipated Discharge Date/Time: 02/13/22 18:22 Patient Disposition: Home, Self-Care Discharge Diagnosis: ascietes Referrals: Angelika Collins NP [Primary Care Provider] - 1 Week Discharge Medications: New potassium chloride 10 mEq tablet extended release 10 meq PO DAILY Qty: 14 0RF Continued spironolactone 50 mg Tablet 50 mg PO DAILY 0RF folic acid 1 mg Tablet 1 mg PO DAILY 0RF acamprosate 333 mg Tablet,Delayed Release (Dr/Ec) 666 mg PO TID 0RF thiamine HCl (vitamin B1) 100 mg tablet 1 tab PO BID 0RF Discharge Orders: Discharge Order (Routine); Ordered 02/13/22 Ordered By: Hero Winn Diet: advance to usual diet Activity on Discharge: As tolerated Stand Alone Forms: Patient Portal Discharge page, Work/School Release Other Ambulatory Orders: Basic Metabolic Panel (Routine) Timeframe: 20220216 Facility: [facility] - Location: Laboratory Ordered By: Hero Winn Magnesium (Routine) Timeframe: [id number] Facility: [facility] - Location: Laboratory Ordered By: Hero Winn Care Plan Goals: prevent rehospialization Health Concerns: advance liver cirrhosis with recurrent ascietes Plan of Treatment: Take medication as recommended ask your Doctor to have you go see a electronic tester, avoid alcohol Check labs in 3 days Assessment: As above Patient Instructions: Potassium Chloride (By mouth) Discharge Date/Time: 02/13/22 19:39
[2022-02-14 15:01] LABS: pH Peritoneal Fluid 7.52
[2022-02-14 15:03] LABS: Albumin Peritoneal Fluid 1.4
[2022-02-14 15:04] LABS: LDH Peritoneal Fluid 65; Total Protein Peritoneal Fluid 2.7
[2022-02-14 15:05] LABS: Amylase Peritoneal Fluid 29; Glucose Peritoneal Fluid 110
== END 2022-02-13 19:39 | disposition home or self-care (01) | DRG 280 ==
LOC: HO.ED 14:05 → HO.EDOVER 14:51 → HO.IMC 02-13 07:35
PROVIDERS: Physician Assistant; Radiology Diagnostic Radiology; Admitting Provider Internal Medicine; Emergency Provider Student in an Organized Health Care Education/Training Program; PCP Nurse Practitioner Adult Health; Visit Provider Internal Medicine
PROC: 0W9G3ZZ Drainage of Peritoneal Cavity, Percutaneous Approach (ICD-10-PCS; principal; 2022-02-13 16:30)
DX: K70.31 Alcoholic cirrhosis of liver with ascites (principal); D68.4 Acquired coagulation factor deficiency; D63.8 Anemia in other chronic diseases classified elsewhere; E83.51 Hypocalcemia; E87.6 Hypokalemia; E83.42 Hypomagnesemia; F10.21 Alcohol dependence, in remission; F17.210 Nicotine dependence, cigarettes, uncomplicated; Z71.6 Tobacco abuse counseling; Z28.39 Other underimmunization status; Z20.822 Contact with and (suspected) exposure to COVID-19; Z79.899 Other long term (current) drug therapy
CPT/HCPCS: 36415; 49083; 71045; 80048; 80076; 82042; 82150; 82607; 82728; 82746; 82945; 83540; 83615; 83690; 83735; 83986; 84157; 84443; 85025; 85610; 85730; 87635; 89051; 93005; 96365; 96366; 96367; 96375; 99285; J0610; J3475; P9047

== ENCOUNTER 2022-03-18 11:53 | Emergency (ER) | payer MEDICAID, SELFPAY ==
[2022-03-18 12:25] VITALS: BP 116/85; PULSE 77; RESP 18; TEMP 36.2; O2SAT 97; BMI 28.6
[2022-03-18 15:38] VITALS: BP 121/80; PULSE 83; RESP 18; TEMP 36.6; O2SAT 98
--- NOTE | 2022-03-18 15:39 | PC.NURSE ---
pt a&ox3, vss, hx ascites - comes to the ED once every 3-4 weeks to get abd drained. pt came in because he as been experiencing some sob. no shortness of breath noted in room, pt speaking in full sentences. pending ED provider.
--- NOTE | 2022-03-18 15:56 | ED.GENADULT ---
HPI - General Adult General Chief complaint: General Medical Stated complaint: needs stomach drained Time Seen by Provider: 03/18/22 15:42 Source: patient Mode of arrival: ambulatory Limitations: no limitations History of Present Illness HPI narrative: 51-year-old male presents for paracentesis. States that his abdomen is so distended that is causing him shortness of breath. He does have a significant history of alcoholic cirrhosis and has had multiple paracentesis in the past. Onset (ago): year(s) Location: abdomen Radiation: non-radiation Severity: moderate Severity scale (1-10): 7 Quality: aching and constant Pain Consistency: constant Relieving factors: none Exacerbating factors: eating, movement and other (Inspiration) Associated symptoms: denies other symptoms Treatments prior to arrival: none Related Data Home Medications Medication Instructions Recorded Confirmed acamprosate 333 mg tablet,delayed 666 mg PO TID 02/12/22 02/12/22 release folic acid 1 mg tablet 1 mg PO DAILY 02/12/22 02/12/22 spironolactone 50 mg tablet 50 mg PO DAILY 02/12/22 02/12/22 thiamine HCl (vitamin B1) 100 mg 1 tab PO BID 02/12/22 02/12/22 tablet Previous Rx's Medication Instructions Recorded potassium chloride 10 mEq 10 meq PO DAILY #14 tab 02/13/22 tablet,extended release Allergies Allergy/AdvReac Type Severity Reaction Status Date / Time No Known Allergies Allergy Verified 02/12/22 11:01 Review of Systems Review of Systems: Constitutional: No Fever, No Chills ENT/Mouth: No Ear Pain, No Hoarseness, No sore throat Eyes: No Eye Pain, No Swelling, No Redness, No Foreign Body Cardiovascular: No Chest Pain, positive SOB secondary to ascites. Respiratory: No Cough, No Dyspnea Gastrointestinal: Positive abdominal distension and pressure, No Nausea, No Vomiting, No Diarrhea, No abdominal Pain Genitourinary: No Dysuria, No Hematuria Musculoskeletal: No joint pain, No Myalgias, No Joint Swelling Skin: No Skin lacerations, No rash Neuro: No Weakness, No Numbness, No Paresthesias, No Loss of Consciousness, No Dizziness, No Headache Psych: No Anxiety/Panic, No Depression Heme/Lymph: no easy bruising, no Lymphadenopathy Endocrine: No Polyuria, No Polydipsia Yes all other systems are reviewed and are negative PMFSH Past Medical History Attestation statement: The following information was validated with the patient. Source: old records reviewed Medical History Ascites Cirrhosis EtOH dependence Family History Family History Other Alcoholism Social History Social History Household Members: Family Housing: House Do you presently have visiting nurse or other home services: No Alcohol intake: former Patient Tobacco Use Status: Current everyday Tobacco user Tobacco use type: Cigarette e-Cigarette/Vaping Use: Never Used Use of substances other than those prescribed or required for medical reasons: No Advance Directives: No service: No Current occupational status: disabled Physical Exam ED Vital Signs: Vital Signs - 24 hr 03/18/22 12:25 03/18/22 15:38 03/18/22 17:46 Temperature 97.2 F 97.9 F 97.8 F Pulse Rate 77 83 87 Respiratory Rate 18 18 14 Blood Pressure 116/85 121/80 119/75 Pulse Oximetry 97 98 99 03/18/22 18:21 Temperature Pulse Rate 79 Respiratory Rate 18 Blood Pressure 116/77 Pulse Oximetry 97 BMI result Body Mass Index 28.6 Appearance: Alert. Oriented X3. No acute distress. Eyes: Pupils equal, round and reactive to light. Sclera icteric. ENT: Pharynx normal. Moist mucous membranes. Neck: Normal inspection. Neck supple. CVS: Normal heart rate and rhythm. Pulses normal. Respiratory: No respiratory distress. Breath sounds normal. Abdomen: hard and distended secondary to ascites. Skin: Skin warm and dry. Normal skin color. Normal skin turgor. Extremities: No lower extremity edema. Gait well-balanced well coordinated. Neuro: No motor deficit. No sensory deficit. Cranial nerves 2-12 intact. Course Course Course Narrative: 51-year-old male presents for paracentesis. Labs are unremarkable and consistent with his baseline. Paracentesis completed utilizing ultrasound guide. 5 L aspirated. Cultures sent to lab. Will monitor for an hour. 18:22. Patient even unlabored respirations. Complains of no pain. Abdomen soft no tenderness to palpation. 18:50 labs are unremarkable. Albumin 3.2, no need for albumin resuscitation at this time. Plan of care is to discharge home with patient following up with primary care physician and Gastroenterology as scheduled. Patient verbalized understanding of and agrees to plan of care to discharge home. Verbalized understanding of signs and symptoms indicating need for emergent intervention Procedures Paracentesis Time Out Performed: Yes Indication: Ascites Procedure: therapeutic paracentesis Location: RLQ Local Anesthetic: lidocaine 2% Amount of anesthesia used (mL): 4 Bedside Ultrasound Used: yes, Ascites confirmed and location marked Preparation: sterile prep and drape Amount of fluid obtained (mL): 5,000 Fluid: clear Size of Needle Used: 5 Post Procedure Exam: awake, alert, normal BP, normal HR and normal SpO2 Patient Tolerated Procedure: well and no complications Complications: none Medical Decision Making Differential Diagnosis Differential Diagnosis: Cirrhosis, ascites, bacterial peritonitis Medical Records Medical records reviewed: Yes I reviewed the patient's medical records. Lab Data Lab results reviewed: Yes I reviewed the patient's lab results. Result diagrams: 03/18/22 16:11 03/18/22 16:11 Labs: Lab Results 03/18/22 03/18/22 03/18/22 Range/Units 16:11 16:11 16:11 WBC 4.8 (4.8-10.8) X10*3/uL RBC 3.56 L (4.60-5.80) X10*6/uL Hgb 8.7 L (14.0-18.0) g/dl Hct 29.1 L (42.0-52.0) % MCV 81.7 (80.0-98.0) fL MCH 24.4 L (27.0-33.0) pg MCHC 29.9 L (31.0-36.0) g/dl RDW 23.7 H (11.0-16.0) % Plt Count 142 L D (160-400) X10*3/uL MPV 9.5 (9.4-12.4) fL Immature Gran % (Auto) 0.2 (0.0-0.4) % Neut % (Auto) 63.5 (45-73) % Lymph % (Auto) 23.1 (20-40) % [place] % (Auto) 10.1 (2-11) % Eos % (Auto) 2.3 (0-4) % Baso % (Auto) 0.8 (0-2) % Lymph # (Auto) 1.1 L (1.2-4.9) X10*3/uL [place] # (Auto) 0.5 (0.1-1.2) X10*3/uL Eos # (Auto) 0.1 (0.0-0.4) X10*3/uL Baso # (Auto) 0.0 (0.0-0.2) X10*3/uL Abs Immat Gran (auto) 0.01 (0.00-0.03) X10*3/uL Absolute Neuts (auto) 3.0 (2.0-8.3) x10*3/uL Absolute Nucleated RBC 0.000 (0.0-0.012) X10*3/uL Nucleated RBC % (auto) 0.0 (0.0-0.2) /100WBC PT 18.4 H (9.9-13.0) SEC INR 1.6 H (0.9-1.1) APTT 33.2 (24.1-38.0) SEC Sodium 139 (135-145) mmol/L Potassium 3.2 L D (3.3-5.1) mmol/L Chloride 103 (96-108) mmol/L Carbon Dioxide 24 (22-29) mmol/L Anion Gap 15 (12-20) BUN 8 L (9-16) mg/dL Creatinine 0.66 (0.5-1.4) mg/dL Estim Creat Clear Calc 142.1 Estimated GFR > 60 Random Glucose 114 (60-115) mg/dL Calcium 8.1 L (8.4-10.2) mg/dL Magnesium 1.8 (1.6-2.6) mg/dL Total Bilirubin 1.0 (0.0-1.0) mg/dL Direct Bilirubin 0.7 H (0.0-0.5) mg/dL AST 100 H (5-37) U/L ALT 31 (0-40) U/L Alkaline Phosphatase 127 H D (39-117) U/L Total Protein 7.0 D (6.5-8.0) g/dL Albumin 3.2 L D (3.5-5.0) g/dL Peritoneal WBC X10*3/uL Peritoneal RBC X10*6/uL Periton Neutrophils % Periton Lymphocytes % Peritoneal Monocytes % 05/07/22 Range/Units 18:21 WBC (4.8-10.8) X10*3/uL RBC (4.60-5.80) X10*6/uL Hgb (14.0-18.0) g/dl Hct (42.0-52.0) % MCV (80.0-98.0) fL MCH (27.0-33.0) pg MCHC (31.0-36.0) g/dl RDW (11.0-16.0) % Plt Count (160-400) X10*3/uL MPV (9.4-12.4) fL Immature Gran % (Auto) (0.0-0.4) % Neut % (Auto) (45-73) % Lymph % (Auto) (20-40) % [place] % (Auto) (2-11) % Eos % (Auto) (0-4) % Baso % (Auto) (0-2) % Lymph # (Auto) (1.2-4.9) X10*3/uL [place] # (Auto) (0.1-1.2) X10*3/uL Eos # (Auto) (0.0-0.4) X10*3/uL Baso # (Auto) (0.0-0.2) X10*3/uL Abs Immat Gran (auto) (0.00-0.03) X10*3/uL Absolute Neuts (auto) (2.0-8.3) x10*3/uL Absolute Nucleated RBC (0.0-0.012) X10*3/uL Nucleated RBC % (auto) (0.0-0.2) /100WBC PT (9.9-13.0) SEC INR (0.9-1.1) APTT (24.1-38.0) SEC Sodium (135-145) mmol/L Potassium (3.3-5.1) mmol/L Chloride (96-108) mmol/L Carbon Dioxide (22-29) mmol/L Anion Gap (12-20) BUN (9-16) mg/dL Creatinine (0.5-1.4) mg/dL Estim Creat Clear Calc Estimated GFR Random Glucose (60-115) mg/dL Calcium (8.4-10.2) mg/dL Magnesium (1.6-2.6) mg/dL Total Bilirubin (0.0-1.0) mg/dL Direct Bilirubin (0.0-0.5) mg/dL AST (5-37) U/L ALT (0-40) U/L Alkaline Phosphatase (39-117) U/L Total Protein (6.5-8.0) g/dL Albumin (3.5-5.0) g/dL Peritoneal WBC 0.389 X10*3/uL Peritoneal RBC 0.006 X10*6/uL Periton Neutrophils 11 % Periton Lymphocytes 59 % Peritoneal Monocytes 30 % Discharge Plan Discharge Clinical Impression: Ascites due to alcoholic cirrhosis Patient Disposition: Home, Self-Care Instructions: Cirrhosis (ED), Paracentesis (DC) Additional Instructions: We aspirated 5 L of peritoneal fluid. Follow-up with Gastroenterology. Thank you for choosing this emergency department for evaluation. Please follow-up with primary care physician as needed. Return to the emergency department for any new, concerning, or worsening symptoms. Prescriptions: No Action spironolactone 50 mg Tablet 50 mg PO DAILY 0RF folic acid 1 mg Tablet 1 mg PO DAILY 0RF acamprosate 333 mg Tablet,Delayed Release (Dr/Ec) 666 mg PO TID 0RF thiamine HCl (vitamin B1) 100 mg tablet 1 tab PO BID 0RF potassium chloride 10 mEq tablet extended release 10 meq PO DAILY Qty: 14 0RF
[2022-03-18 16:17] LABS: MANUAL DIFF FLAG NO
[2022-03-18 16:20] LABS: Basophils Percent Auto 0.8 % (0-2); Eosinophils Absolute Auto 0.1 X10*3/uL (0.0-0.4); Eosinophils Percent Auto 2.3 % (0-4); Hematocrit 29.1 % (42.0-52.0); Hemoglobin 8.7 g/dl (14.0-18.0); Imm Gran Abs Auto 0.01 X10*3/uL (0.00-0.03); Imm Gran Pct Auto 0.2 % (0.0-0.4); Lymphocytes Absolute Auto 1.1 X10*3/uL (1.2-4.9); Lymphocytes Percent Auto 23.1 % (20-40); Mean Corpuscular HGB Conc 29.9 g/dl (31.0-36.0); Mean Corpuscular Hemoglobin 24.4 pg (27.0-33.0); Mean Corpuscular Volume 81.7 fL (80.0-98.0); Mean Platelet Volume 9.5 fL (9.4-12.4); Monocytes Absolute Auto 0.5 X10*3/uL (0.1-1.2); Monocytes Percent Auto 10.1 % (2-11); Neutrophils Percent Auto 63.5 % (45-73); Platelet Count 142 X10*3/uL (160-400); Red Blood Count 3.56 X10*6/uL (4.60-5.80); Red Cell Distribution Width 23.7 % (11.0-16.0); White Blood Count 4.8 X10*3/uL (4.8-10.8)
[2022-03-18 16:27] LABS: INTERNATIONAL NORM RATIO 1.6 (0.9-1.1); Prothrombin Time 18.4 SEC (9.9-13.0)
[2022-03-18 16:29] LABS: Partial Thromboplastin Time 33.2 SEC (24.1-38.0)
[2022-03-18 16:40] LABS: Anion Gap 15 (12-20); Blood Urea Nitrogen 8 mg/dL (9-16); Calcium 8.1 mg/dL (8.4-10.2); Carbon Dioxide 24 mmol/L (22-29); Chloride 103 mmol/L (96-108); Creatinine Clr Calc Pharmacy 142.1; Estimated Glomerular Filt Rate > 60; Glucose Random 114 mg/dL (60-115); Potassium 3.2 mmol/L (3.3-5.1); Sodium 139 mmol/L (135-145)
[2022-03-18 16:57] LABS: Magnesium 1.8 mg/dL (1.6-2.6)
[2022-03-18 17:46] VITALS: BP 119/75; PULSE 87; RESP 14; TEMP 36.6; O2SAT 99
[2022-03-18 18:21] VITALS: BP 116/77; PULSE 79; RESP 18; O2SAT 97
[2022-03-18 18:32] LABS: MN% 87.6 %; PMN% 12.4 %; RBC Peritoneal Fluid 0.006 X10*6/uL; WBC Peritoneal Fluid 0.389 X10*3/uL
[2022-03-18 18:35] LABS: BF Shift QC OK YES; Man Diluent Bkgrd OK YES
[2022-03-18 18:40] LABS: Alanine Aminotransferase 31 U/L (0-40); Albumin Level 3.2 g/dL (3.5-5.0); Alkaline Phosphatase 127 U/L (39-117); Aspartate Amino Transferase 100 U/L (5-37); Bilirubin Direct 0.7 mg/dL (0.0-0.5)
[2022-03-18 18:51] LABS: Lymphocyte Peritoneal Fl 59 %; Monocytes Peritoneal Fl 30 %; Neutrophils Peritoneal Fluid 11 %
== END 2022-03-18 19:00 | disposition home or self-care (01) ==
PROVIDERS: Nurse Practitioner Family; Emergency Provider Internal Medicine
DX: K70.31 Alcoholic cirrhosis of liver with ascites (principal); F10.20 Alcohol dependence, uncomplicated
CPT/HCPCS: 36415; 49083; 80048; 80076; 83735; 85025; 85610; 85730; 87071; 87073; 87205; 89051; 99284; 99285

== ENCOUNTER 2022-03-28 15:51 | Emergency (ER) | payer MEDICAID, SELFPAY ==
[2022-03-28 17:34] VITALS: BP 138/88; PULSE 106; RESP 18; TEMP 37.2; O2SAT 98; BMI 28.7
[2022-03-29 02:39] VITALS: BP 127/86; PULSE 89; RESP 20; TEMP 37.1; O2SAT 95
[2022-03-29 03:14] LABS: MANUAL DIFF FLAG NO
[2022-03-29 03:16] LABS: Hemoglobin 8.4 g/dl (14.0-18.0); Red Cell Distribution Width 22.5 % (11.0-16.0); SCAN SMEAR FLAG 1
[2022-03-29 03:17] LABS: Basophils Percent Auto 0.7 % (0-2); Eosinophils Absolute Auto 0.2 X10*3/uL (0.0-0.4); Eosinophils Percent Auto 2.6 % (0-4); Hematocrit 27.5 % (42.0-52.0); Imm Gran Abs Auto 0.01 X10*3/uL (0.00-0.03); Imm Gran Pct Auto 0.2 % (0.0-0.4); Lymphocytes Absolute Auto 0.9 X10*3/uL (1.2-4.9); Lymphocytes Percent Auto 15.6 % (20-40); Mean Corpuscular HGB Conc 30.5 g/dl (31.0-36.0); Mean Corpuscular Hemoglobin 24.1 pg (27.0-33.0); Mean Corpuscular Volume 78.8 fL (80.0-98.0); Mean Platelet Volume 10.3 fL (9.4-12.4); Monocytes Absolute Auto 0.5 X10*3/uL (0.1-1.2); Monocytes Percent Auto 8.5 % (2-11); Neutrophils Absolute Auto 4.2 x10*3/uL (2.0-8.3); Neutrophils Percent Auto 72.4 % (45-73); Platelet Count 151 X10*3/uL (160-400); Red Blood Count 3.49 X10*6/uL (4.60-5.80); White Blood Count 5.9 X10*3/uL (4.8-10.8)
[2022-03-29 03:21] LABS: INTERNATIONAL NORM RATIO 1.7 (0.9-1.1); PLT ABN DIST 1; Prothrombin Time 19.1 SEC (9.9-13.0)
[2022-03-29 03:38] LABS: Alanine Aminotransferase 22 U/L (0-40); Albumin Level 3.1 g/dL (3.5-5.0); Alkaline Phosphatase 125 U/L (39-117); Anion Gap 14 (12-20); Aspartate Amino Transferase 49 U/L (5-37); Bilirubin Total 2.8 mg/dL (0.0-1.0); Blood Urea Nitrogen 10 mg/dL (9-16); Calcium 8.6 mg/dL (8.4-10.2); Carbon Dioxide 26 mmol/L (22-29); Chloride 95 mmol/L (96-108); Creatinine Clr Calc Pharmacy 142.2; Estimated Glomerular Filt Rate > 60; Glucose Random 101 mg/dL (60-115); Magnesium 1.6 mg/dL (1.6-2.6); Potassium 3.6 mmol/L (3.3-5.1); Sodium 131 mmol/L (135-145); Total Protein 6.8 g/dL (6.5-8.0)
[2022-03-29 04:25] VITALS: BP 121/79; PULSE 93; RESP 18; O2SAT 96
--- NOTE | 2022-03-29 04:26 | ED.GENADULT ---
HPI - General Adult General Chief complaint: Abdominal Pain Stated complaint: stomach issues Time Seen by Provider: 03/29/22 03:00 Source: patient Mode of arrival: ambulatory History of Present Illness HPI narrative: 51-year-old male who is a known liver cirrhotic with ascites the gets drained semi regularly presents with increasing shortness of breath and weight gain and is asking for therapeutic paracentesis. He states that he did not get his regular amount fluid drained 1 week ago (5 L) and states that he typically gets 10/11 L every 3-4 weeks. He denies any fever, chills, or abdominal pain. Related Data Home Medications Medication Instructions Recorded Confirmed acamprosate 333 mg tablet,delayed 666 mg PO TID 02/12/22 02/12/22 release folic acid 1 mg tablet 1 mg PO DAILY 02/12/22 02/12/22 spironolactone 50 mg tablet 50 mg PO DAILY 02/12/22 02/12/22 thiamine HCl (vitamin B1) 100 mg 1 tab PO BID 02/12/22 02/12/22 tablet Previous Rx's Medication Instructions Recorded potassium chloride 10 mEq 10 meq PO DAILY #14 tab 02/13/22 tablet,extended release Allergies Allergy/AdvReac Type Severity Reaction Status Date / Time No Known Allergies Allergy Verified 03/28/22 17:34 Review of Systems Review of Systems: Pertinent positives and negatives as stated in HPI 10 point review of systems is otherwise negative. [facility] Past Medical History Source: nursing notes reviewed Medical History Ascites Cirrhosis EtOH dependence Family History Family History Other Alcoholism Social History Social History Household Members: Family Housing: House Do you presently have visiting nurse or other home services: No Alcohol intake: former Patient Tobacco Use Status: Current everyday Tobacco user Tobacco use type: Cigarette e-Cigarette/Vaping Use: Never Used Advance Directives: No Advance Directives Information Provided: No service: No Current occupational status: disabled Physical Exam ED Vital Signs: Vital Signs - 24 hr 03/28/22 17:34 03/29/22 02:39 03/29/22 04:25 Temperature 98.9 F 98.7 F Pulse Rate 106 H 89 93 Respiratory Rate 18 20 18 Blood Pressure 138/88 127/86 121/79 Pulse Oximetry 98 95 96 03/29/22 04:35 Temperature Pulse Rate 89 Respiratory Rate 18 Blood Pressure 123/81 Pulse Oximetry 96 BMI result Body Mass Index 28.7 VITAL SIGNS: Reviewed. GENERAL: Well developed, well nourished, in no acute distress. HEAD: Normocephalic/atraumatic EYES: PERRLA, EOMI EARS: Ext canals without abnormality OROPHARYNX: no oral lesions noted, posterior pharynx clear LUNGS: Normal breath sounds. No adventitious sounds or accessory muscle use. SpO2<96> CARDIOVASCULAR: Regular rate and rhythm without noted murmurs, no JVD or lower extremity edema. ABDOMEN: Soft, distension with positive fluid wave and noted a symptomatic and reducible umbilical hernia, no overlying erythema or induration. MUSCULOSKELETAL: No tenderness, deformities, or effusions noted on gross inspection. EXTREMITIES: No cyanosis, clubbing or edema. SKIN: Inspection of the skin reveals no rashes NEUROLOGIC: Alert and oriented x 4. Course Course Course Narrative: 51-year-old male with history and clinical presentation consistent with abdominal ascites that is symptomatic and no evidence to suggest SBP. Basic labs were obtained pain and these were reviewed and found to be acceptable to proceed with abdominal paracentesis which was done at the bedside under ultrasound guidance without complications. 4 L were removed, patient feels better and was discharged home in stable condition. Procedures Paracentesis Time Out Performed: No Indication: Ascites Procedure: therapeutic paracentesis Location: RLQ Local Anesthetic: lidocaine 2% Amount of anesthesia used (mL): 2 Bedside Ultrasound Used: yes, real-time guidance Preparation: sterile prep and drape Amount of fluid obtained (mL): 4,000 Fluid: clear Size of Needle Used: 7 Post Procedure Exam: awake, alert, normal BP, normal HR and normal SpO2 Patient Tolerated Procedure: well and no complications Complications: none Medical Decision Making Lab Data Result diagrams: 03/29/22 03:09 03/29/22 03:09 Labs: Lab Results 03/29/22 03/29/22 03/29/22 Range/Units 03:09 03:09 03:09 WBC 5.9 (4.8-10.8) X10*3/uL RBC 3.49 L (4.60-5.80) X10*6/uL Hgb 8.4 L (14.0-18.0) g/dl Hct 27.5 L (42.0-52.0) % MCV 78.8 L (80.0-98.0) fL MCH 24.1 L (27.0-33.0) pg MCHC 30.5 L (31.0-36.0) g/dl RDW 22.5 H (11.0-16.0) % Plt Count 151 L (160-400) X10*3/uL MPV 10.3 (9.4-12.4) fL Immature Gran % (Auto) 0.2 (0.0-0.4) % Neut % (Auto) 72.4 (45-73) % Lymph % (Auto) 15.6 L (20-40) % [place] % (Auto) 8.5 (2-11) % Eos % (Auto) 2.6 (0-4) % Baso % (Auto) 0.7 (0-2) % Lymph # (Auto) 0.9 L (1.2-4.9) X10*3/uL [place] # (Auto) 0.5 (0.1-1.2) X10*3/uL Eos # (Auto) 0.2 (0.0-0.4) X10*3/uL Baso # (Auto) 0.0 (0.0-0.2) X10*3/uL Abs Immat Gran (auto) 0.01 (0.00-0.03) X10*3/uL Absolute Neuts (auto) 4.2 (2.0-8.3) x10*3/uL Absolute Nucleated RBC 0.000 (0.0-0.012) X10*3/uL Nucleated RBC % (auto) 0.0 (0.0-0.2) /100WBC PT 19.1 H (9.9-13.0) SEC INR 1.7 H (0.9-1.1) Sodium 131 L (135-145) mmol/L Potassium 3.6 (3.3-5.1) mmol/L Chloride 95 L (96-108) mmol/L Carbon Dioxide 26 (22-29) mmol/L Anion Gap 14 (12-20) BUN 10 (9-16) mg/dL Creatinine 0.64 (0.5-1.4) mg/dL Estim Creat Clear Calc 142.2 Estimated GFR > 60 Random Glucose 101 (60-115) mg/dL Calcium 8.6 D (8.4-10.2) mg/dL Magnesium 1.6 (1.6-2.6) mg/dL Total Bilirubin 2.8 H (0.0-1.0) mg/dL AST 49 H D (5-37) U/L ALT 22 (0-40) U/L Alkaline Phosphatase 125 H (39-117) U/L Total Protein 6.8 (6.5-8.0) g/dL Albumin 3.1 L (3.5-5.0) g/dL Discharge Plan Discharge Clinical Impression: Abdominal ascites, Cirrhosis of liver Patient Disposition: Home, Self-Care Instructions: Cirrhosis (ED), Ascites (ED), Paracentesis (DC) Additional Instructions: Please follow-up with your primary care provider and/or your information technology account manager to set up a regular scheduled outpatient paracentesis to help avoid discomfort. Return to the ER for any worsening symptoms or development of fever or chills. Prescriptions: No Action spironolactone 50 mg Tablet 50 mg PO DAILY 0RF folic acid 1 mg Tablet 1 mg PO DAILY 0RF acamprosate 333 mg Tablet,Delayed Release (Dr/Ec) 666 mg PO TID 0RF thiamine HCl (vitamin B1) 100 mg tablet 1 tab PO BID 0RF potassium chloride 10 mEq tablet extended release 10 meq PO DAILY Qty: 14 0RF Referrals: Angelika Collins NP [Primary Care Provider] -
--- NOTE | 2022-03-29 04:26 | PC.NURSE ---
Assisted Dr. Monteiro with paracentesis Pt tolerated well
[2022-03-29 04:35] VITALS: BP 123/81; PULSE 89; RESP 18; O2SAT 96
[2022-03-29] MEDS: Lidocaine HCl 2 % 20 ML VIAL 5 ML INFILTRATI (04:50)
[2022-03-29 04:52] VITALS: BP 123/79; PULSE 93; RESP 16; O2SAT 95
== END 2022-03-29 05:02 | disposition home or self-care (01) ==
PROVIDERS: Emergency Provider Student in an Organized Health Care Education/Training Program; PCP Nurse Practitioner Adult Health
DX: R06.02 Shortness of breath (principal); R10.31 Right lower quadrant pain; R10.13 Epigastric pain; F17.210 Nicotine dependence, cigarettes, uncomplicated; Z71.6 Tobacco abuse counseling; Z79.899 Other long term (current) drug therapy
CPT/HCPCS: 36415; 80053; 83735; 85025; 85610; 99282; 99283